=== PATIENT | male | born 1965 | race Caucasian/White ===

== ENCOUNTER 2016-09-07 13:17 | Inpatient (IN) | payer OTHER ==
[~2016-09-07] VITALS: Ht 188 cm; Wt 90.0 kg
[2016-09-07 13:47] VITALS: BP 136/94; PULSE 99; RESP 10; O2SAT 99
--- NOTE | 2016-09-07 15:10 | ED.REPORT ---
HPI-General Illness Date of Service Sep 07, 2016 ED Provider: Doc,Ed MD History of Present Illness: needs to be admitted for blood infection, dx at [facility]. was at [facility] for 3 weeks then transferred to [place]. Leonie Zhou at [facility] in [place] is primary care. Has been on antibiotics. presenting symptom was pain in neck, wrist and hip on nafcillin regime. Hx of IVDA, current use. Left [place] because no one would give him pain medications Nursing Notes Stated Complaint: BLOOD INFECTION Chief Complaint: General Complaint Nursing Notes Reviewed: Yes Allergies: Coded Allergies: oxycodone (Verified Allergy, Severe, NIGHT TERRORS, 09/07/16) General Time Seen by MD: 15:10 Chief Complaint Other ("blood infection") Hx Obtained From: Patient Sudden in Onset?: No Past Medical History Past Medical History Denies: Asthma, Diabetes mellitus Past Surgical History left arm Smoking History Current Every Day Smoker (1/2 pack a day 40 years) Social History meth and heroin IV Alcohol Use: "Social" Occupation lives with no work or school 09/07/2016 Ambulatory Status Independent Physical Exam Vital Signs Vital Signs Date Time Temp Pulse Resp B/P Pulse Ox O2 Delivery O2 Flow Rate FiO2 09/07/16 13:47 36.6 99 10 136/94 99 Room Air Initial VS: Reviewed, Vital signs normal General/Constitutional: Well-developed, Well-nourished Head / Eyes: Atraumatic, Normocephalic, PERRL ENT: Mucous membranes moist, Conjunctiva normal, No scleral icterus Neck: Supple, Non-tender, Full range of motion Respiratory: Breath sounds normal, Clear to auscultation, No respiratory distress Cardiovascular: Regular rate & rhythm, Heart sounds normal, Intact distal pulses Abdomen / GI: Soft, Non-tender, No guarding, No rebound, No distention Back: No CVA tenderness Lymphatic: No lymphadenopathy Extremities: Vascular intact, Neuro intact, No swelling, No tenderness Skin: Warm, Dry, No cyanosis Neurologic: Alert, Oriented, Nonfocal Psychiatric: Mood/affect normal, Behavior normal, Normal thought content General/Constitutional: Awake, Alert, No acute distress Respiratory / Chest: Atraumatic, Breath sounds NL, Breath sounds = bilat Cardiovascular: Heart rate NL, Regular rhythm, Heart sounds NL Interpretation & Diagnostics Lab Results Interpretation Result Diagram: 09/07/16 1645 09/07/16 1645 Test 09/07/16 16:45 White Blood Count 9.2th/mm3 (3.8-10.1) Red Blood Count 4.49mil/mm3 (4.40-5.80) Hemoglobin 13.2g/dL (13.8-17.2) Hematocrit 40.1% (41.0-50.0) Mean Corpuscular Volume 89.3fL (81-100) Mean Corpuscular Hemoglobin 29.4pg (27.0-35.0) Mean Corpuscular Hemoglobin Concent 32.9% (32.0-37.0) Red Cell Distribution Width 14.7% (12.3-15.4) Platelet Count 355bil/L (150-400) Neutrophils (%) (Auto) 56.2% (40-74) Lymphocytes (%) (Auto) 28.7% (14-46) Monocytes (%) (Auto) 10.5% (4-12) Eosinophils (%) (Auto) 4.1% (0-5) Basophils (%) (Auto) 0.2% (0-3) Sodium Level 138mEq/L (134-144) Potassium Level 4.1mEq/L (3.5-5.2) Chloride Level 103mEq/L (97-108) Carbon Dioxide Level 21mmol/L (18-29) Blood Urea Nitrogen 10mg/dL (6-24) Creatinine 0.58mg/dL (0.76-1.27) Estimat Glomerular Filtration Rate 157mL/min (>59) Glucose Level 99mg/dL (60-99) Lactic Acid Level 1.1mmol/L (0.4-2.0) Calcium Level 9.6mg/dL (8.5-10.1) Total Bilirubin 0.4mg/dL (0.0-1.2) Aspartate Amino Transf (AST/SGOT) 34U/L (0-50) Alanine Aminotransferase (ALT/SGPT) 70U/L (0-44) Alkaline Phosphatase 67U/L (25-150) Total Protein 8.1g/dL (6.4-8.4) Albumin 3.9g/dL (3.4-5.0) Re-Eval/Medical Decision Med Decision/Clinical Course 50 year old presents to the Er for evualation of a blood infection s/p using drugs. Has been seen at [facility] and did have skilled nursing placement but left because no one was giving him pain medications. consult with Dr. Sanchez. Patient is admitted. Discharge & Departure Primary Impression: Intravenous drug abuse Additional Impression: Bacteremia Disposition: ADMITTED TO HOSPITAL Referrals: NOPCP (PCP) EDSupervising Provider for APC: Maximiliano Rocha MD, Sue ARNP Sep 07, 2016 15:10
[2016-09-07] MEDS ORDERED: CeFAZolin 2 Gm/50 mL D5W Duplex Bag IV ONE (16:10)
[2016-09-07 16:54] LABS: BASOPHILS % (AUTO) 0.2 % (0-3); EOSINOPHILS % (AUTO) 4.1 % (0-5); MONOCYTES % (AUTO) 10.5 % (4-12); Mean Corpuscular Hemoglobin 29.4 pg (27.0-35.0); Mean Corpuscular Volume 89.3 fL (81-100); NEUTROPHILS % (AUTO) 56.2 % (40-74); Platelet Count 355 bil/L (150-400)
--- NOTE | 2016-09-07 18:19 | PCM.HPMED ---
Subjective Date of Service Sep 07, 2016 Primary Provider: Admitting Physician: Hannah Alvarez MD Primary Care Physician: Nopsaloni Attending Physician: Hannah Alvarez MD Chief Complaint: Neck pain and infection. History of Present Illness: This is a 50-year-old male admitted after spending 2 nights at home with a known C2/C3 facet osteomyelitis on the left side. He had been hospitalized at [facility] in [place], then left there AMA, treated with weekly Dalvabancin, but pain worsened and MRI documented worsening infection. He was then placed on nafcillin with plans for 6 weeks of antibiotics. He was then transferred to a swing bed at [facility] and spent 1 or 2 nights there before leaving AGAINST MEDICAL ADVICE, at the time leaving the impression that he was leaving because he could not receive IV Dilaudid in that setting. He was receiving very large amounts of oral Dilaudid. Please see the notes below and the reference to his IV drug use which is suspected to have recurred in the last 2 days. DOS 09/04/16 Primary Care Physician:~~JILL Lloyd Outpatient Specialists:~Dr. Christensen HPI: Hortencia Barrios~is an 50 y.o.~male~with C2-C3 Osteomyelitis presenting today for IV Nafcillin until October 16, although the patient prefers to count from the beginning of his original failed ABX course, which would put his final date of Nafcillin on October 05. ~He claims to have no ID followup appointment, but the overall plan is to continue Nafcillin until ID says to stop it. ~~His medical records from the hospital in [place] document:::: "Hortencia Barrios is a 50-year-old male who was discharged from the hospital on the of this month after a 4 day admission for MSSA septicemia secondary to IV drug use. He had a septic left C2-3 facet joint with osteomyelitis. Echo was not definitive for endocarditis. He was discharged against medical advice on once a week IV Dalbavancin. He was having worsening pain yesterday and Dr. erwin arrange for an outpatient MRI that is now positive for discitis and osteomyelitis at C2 and C3". Pt was evaluated by Dr. Dickey and Dr. Wolff of ID. It was recommended that he continued Nafcillin 2gm IV q4h for 6-8 weeks, or through October 16 which will be six weeks. Exact duration will be left to ID. Pt will get CBC and CMP bi- weekly while on antibiotic. At discharge, pt's neck pain was slowly improving. Pt was informed that the use of IV and PO pain medication will be wean off before he is [place] [facility] There were no neurologic deficits or symptoms of worsening infection. 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, Rx start 08/11/2016 08/12/2016 Priority: High Polysubstance abuse 08/12/2016 Priority: High Osteomyelitis of spine (HCC) MSSA (methicillin susceptible Staphylococcus aureus) septicemia ([facility]) Heroin use Methamphetamine use Nonrheumatic aortic valve insufficiency 08/14/2016 Opiate dependence ([facility]) 08/14/2016 Staphylococcus aureus septicemia, Rx start 08/11/2016 08/12/2016 HCV antibody positive 08/12/2016 Normocytic anemia 08/12/2016 Tobacco dependence 08/12/2016 Vertebral osteomyelitis (HCC) 08/12/2016 Past Surgical History: Procedure Laterality Date arm surgery Allergies and Medications: Inpatient Meds at the hospital PrescriptionsPriortoAdmission Prescriptions Prior to Admission Medication Sig Dispense Refill Last Dose acetaminophen (TYLENOL) 325 MG tablet Take 2 tablets (650 mg total) by mouth every 6 (six) hours as needed 30 tablet 0 09/03/2016 at 2347 ibuprofen (MOTRIN) 200 MG tablet Take 400 mg by mouth every 6 (six) hours as needed for Pain 09/04/2016 at 0935 NS 0.9 % SolP 100 mL with nafcillin 1 gram SolR 2,000 mg Inject 2,000 mg into the vein every 4 (four) hours ~for 28 days 168 Dose 0 09/04/2016 at 1200 oxyCODONE (ROXICODONE) 5 MG immediate release tablet Take 1-3 tablets (5-15 mg total) by mouth every 3 (three) hours as needed 30 tablet 0 09/02/16 at 0807 traMADol (ULTRAM) 50 mg tablet Take 1 tablet (50 mg total) by mouth every 6 (six) hours as needed 30 tablet 0 09/04/2016 at 1343 mhzspay-lqfepobcsihvj-rdaobzrh (EXCEDRIN EXTRA STRENGTH) 250-250-65 mg 250-250- 65 mg per tablet Take 1 tablet by mouth every 6 (six) hours as needed for Pain Unknown at Unknown time calcium carbonate (TUMS) 200 mg calcium (500 mg) chewable tablet Take 2 tablets (1,000 mg total) by mouth 2 (two) times daily as needed 30 tablet 0 Unknown at Unknown time diphenhydrAMINE (BENADRYL) 25 mg capsule Take 1-2 capsules (25-50 mg total) by mouth every 6 (six) hours as needed 30 capsule 0 Unknown at Unknown time methocarbamol (ROBAXIN) 500 MG tablet Take 500 mg by mouth 4 (four) times daily as needed for Muscle spasms ~Take 1 tablet every 6 hours as needed for severe neck pain ONLY. ~Do NOT take if using Heroin or other drugs. #10 dispensed on 08/09/16 Unknown at Unknown time polyethylene glycol (MIRALAX) 17 gram/dose oral powder Dissolve 1 capful (17 g) in 8 ounces of water and drink by mouth. 527 g 0 Unknown at Unknown time INPATIENT MEDICATION LIST: Scheduled Meds: nafcillin (NALLPEN) IVPB (100 mL) ~2,000 mg IV Q4H Continuous Infusions:~ PRN Meds:acetaminophen, calcium carbonate, diphenhydrAMINE, ibuprofen, methocarbamol, oxyCODONE, polyethylene glycol, traMADol~~~~~~~~~~~~~~~~~~ Allergies: Allergies Allergen Reactions Lorazepam Other (See Comments) Patient stated had "terrifying nightmares" within about an hour of receiving Ativan (po) + Compazine (iv). Prochlorperazine Other (See Comments) Pt reported "terrifying nightmares" within about an hour of receiving ativan (po ) and compazine (iv). Oxycodone: ~Causes nightmares and paranoia Social History: Social History Substance Use Topics Smoking status: Current Every Day Smoker Packs/day: 0.50 Types: Cigarettes Smokeless tobacco: None Alcohol use Yes Comment: rare Family History: History reviewed. No pertinent family history. Review of Systems: General ROS: No chest pain, SOB, Nausea, Vomiting, Bleeding, Seizures, Depression, Rash, Dysuria, Joint Pain, Coughing, Abdominal Pain, Sore Throat Physical Examination: Vitals: ~Vital signs and trends reviewed. Vitals: 09/04/16 1522 BP: 145/88 Pulse: 93 Resp: 18 Temp: 37.1 C (98.7 F) SpO2: 98% General: Not chronically ill appearing, appears stated age and cooperative HEENT: Normocephalic, without obvious abnormality, conjunctivae clear. PERRL, EOM's intact. Lips, mucosa, and tongue normal; teeth and gums normal for age, JVD 6 cm at 45 degrees, neck supple, symmetrical, trachea midline and thyroid grossly normal in appearance Respiratory: normal respiratory effort, lungs clear to ausculation on anterior/ posterior exam Cardiovascular: regular rate and rhythm, S1, S2 normal, variable 1/6 CRYSTAL, pedal pulses 2+ and symmetric, ~no edema in bilateral lower extremities Abdomen: soft, ~non-tender; bowel sounds normal; no masses or organomegaly appreciated MSK: extremities have normal bulk and tone, no cyanosis, intact ROM and 5/5 strength in all four extremities Skin: Warm and dry on palpation without significant lesions Neurologic:~Face symmetric, CN grossly intact, Normal tone and sensation to light touch in all four extremities Psych: Alert/oriented x3, normal affect and insight LINES:~PICC in the right upper arm. RECENT LAB VALUES: ~ Recent Labs ~09/03/16 ~0607 WBC ~7.1 HGB ~13.2 HCT ~40.8 PLTCT ~372 Recent Labs ~09/03/16 ~0607 NA ~139 K ~3.9 CL ~105 CO2 ~27 BUN ~13 CREAT ~0.80 CALCIUM ~8.6 ALBUMIN ~3.1* BILITOT ~0.7 ALKPHOS ~57 ALT ~66* AST ~34 : Other Imaging: Mr Cervical Spine Wo/w Contrast Result Date: 08/22/2016 MR CERVICAL SPINE WO/W CONTRAST Clinical: NECK PAIN Comparison: Comparison is made to MRI of 08/11/2016 Procedure:Standard MR imaging was performed without and with intravenous contrast. Contrast: 16 cc of ProHance was administered. Findings: Comparison is made to MRI of 08/11/2016. Again noted is a abnormal left C2-3 facet joint with abnormal bone marrow edema joint effusion and synovitis with surrounding soft tissue edema and enhancement concerning for septic joint. There is enhancement of the left C2 lamina similar to the prior study. Today's examination is abnormal enhancement of the anterior aspect of the C2 and the C3 vertebral bodies. There is new enhancement at the posterior left lateral margin of the disc seen on series 9 images 6 and 7. This is concerning for discitis and osteomyelitis. The infectious process appears to progressed since the patient's previous study. No epidural abscess is identified. There continues to be edema and enhancement in the prevertebral soft tissues, similar to the patient's prior study. 1. Prior MRI from 08/11/2016 had demonstrated a septic C2-3 facet joint. The infection appears to have progressed since that prior exam with left lateral C2- 3 discitis and osteomyelitis at C2 and C3 anteriorly. There is increasing edema and enhancement in the surrounding soft tissues. No epidural abscess identified. Abnormal edema and enhancement in the prevertebral soft tissues persists. Electronically signed by: Claudia Tejeda MD 08/22/2016 4:25 PM, [facility] [facility] Time. Mr Spine (screening) Wo/w Contrast Result Date: 08/11/2016 MR SPINE (SCREENING) WO/W CONTRAST Clinical: MSSA septicemia IVDA Neck pain Comparison: ~~~Procedure:Standard MR imaging was performed. +20 cc of ProHance were administered. Findings: Cervical spine: There is abnormal edema and enhancement in the prevertebral soft tissues. There is abnormal edema and enhancement in the posterior soft tissues of the cervical spine in the paraspinous muscles. There appears to be enhancement at the left C2-3 facet with widening of the facet, which is concerning for septic joint. Additionally there appears to be abnormal edema and enhancement at the C2 and the C3 facet concerning for osteomyelitis.. The right facet joint does not demonstrate significant enhancement or edema. There appears to be mild dural enhancement without epidural abscess. No soft tissue abscess is identified. Thoracic spine: Alignment and curvature of the thoracic spine is anatomic. Vertebral body height is normal. Intervertebral disc height is normal. No discitis identified. No septic facet joints are seen. No abnormal edema or enhancement in the paraspinous soft tissues. Lumbar spine: Alignment and curvature of the lumbar spine is anatomic. There is mild degenerative disc and endplate disease. No discoid is or osteomyelitis identified. No epidural abscess is seen. Paraspinous soft tissues do not demonstrate significant edema or enhancement. No soft tissue abscess is seen. 1. Findings concerning for septic left C2-3 facet joint with osteomyelitis. There is abnormal edema and enhancement in the prevertebral soft tissues anteriorly and in the posterior paraspinous musculature. The edema and enhancement appear to involve the neural foramen. No soft tissue abscess is seen. There is dural enhancement without focal epidural abscess. Electronically signed by: Claudia Tejeda MD 08/11/2016 4:09 PM, [facility] ? Time. X-ray Chest Pa And Lateral Result Date: 08/09/2016 XR CHEST 2V AP/PA AND LAT Clinical: JOINT PAIN, iv drug use Comparison: 2014 Findings: No pneumothorax, pleural effusion or airspace consolidation. ~ Heart size and mediastinal contours are normal. ~Lungs are well expanded. ~No acute osseous abnormality identified. ~Right nipple ring incidentally noted. 1. ~No acute radiographic abnormality of the chest. Electronically signed by: Kkio Pierre MD 08/09/2016 7:45 AM, [facility] ? Time. Xr Femur Left 2v Result Date: 08/12/2016 XR FEMUR LEFT 2V, XR PELVIS 1-2V Clinical: MSSA septicemia, IVDA Comparison: Findings: There is a 7 mm linear radiolucency in the soft tissue of the left hip, projecting just inferior to the greater trochanter, potentially a radiodense foreign body within the soft tissues. Underlying bony structures intact. ~Left femur intact. ~Alignment at the hip and knee anatomic. ~No knee effusion. Bony pelvis intact. ~SI joints and pubic symphysis intact. ~Frontal views of the hips demonstrate preserved joint spaces. Impression: 7 mm possible radiodense foreign body in the soft tissue of the left hip, just inferior to the greater trochanter. Electronically signed by: Mara Romero MD 08/12/2016 4:00 PM, [facility] ? Time. Xr Hip Right 2+v Complete Result Date: 08/11/2016 XR HIP RIGHT 2+V COMPLETE Clinical: GENERALIZED BODY ACHES FATIGUE HEADACHE RIGHT HIP TENDERNESS Comparison: ~~~Findings: No hip fracture dislocation or AVN identified. No significant hip arthritis is seen. There are small subchondral cysts at the femoral head neck junction but no osseous hypertrophy identified. No acute process seen Electronically signed by: Claudia Tejeda MD 08/11/2016 6: 16 AM, [facility] ? Time. X-ray Pelvis 1-2 Views Result Date: 08/12/2016 XR FEMUR LEFT 2V, XR PELVIS 1-2V Clinical: MSSA septicemia, IVDA Comparison: Findings: There is a 7 mm linear radiolucency in the soft tissue of the left hip, projecting just inferior to the greater trochanter, potentially a radiodense foreign body within the soft tissues. Underlying bony structures intact. ~Left femur intact. ~Alignment at the hip and knee anatomic. ~No knee effusion. Bony pelvis intact. ~SI joints and pubic symphysis intact. ~Frontal views of the hips demonstrate preserved joint spaces. Impression: 7 mm possible radiodense foreign body in the soft tissue of the left hip, just inferior to the greater trochanter. Electronically signed by: Mara Romero MD 08/12/2016 4:00 PM, [facility] ? Time. X-ray Wrist Right Complete Result Date: 08/11/2016 XR WRIST RIGHT 3V Clinical: GENERALIZED BODY ACHES FATIGUE HEADACHE Comparison: ~~~Findings: No acute fracture or dislocation identified. No radiodense foreign bodies are seen. No significant arthritis. Impression: No acute fracture seen Electronically signed by: Claudia Tejeda MD 08/11/2016 6:16 AM, [facility] ? Time. Ct Head Wo Contrast Result Date: 08/09/2016 CT HEAD WO CONTRAST Clinical: headache ~~Comparison: None Procedure:Multislice CT imaging was performed. Exam was performed within 24 hours of admission. Findings: CEREBRUM: Normal. No bleed, mass effect, or visible infarct. POSTERIOR FOSSA: Normal. VESSELS: Normal for age, with mild atherosclerotic calcification. SINUSES, MASTOIDS: Visualized portions normal. ORBITS: Normal. SKULL: Normal for age. Impression: 1. Normal head CT for age. [facility] rendered a preliminary interpretation made available by fax @ [phone] hours. 5A Electronically signed by: Shiv Pizarro MD 08/09/2016 7:56 AM, [facility] ? Time. Echo Complete Per Protocol Result Date: 08/12/2016 ~~~~~~~~~~~~~~~~~~~~~~~~~~~~~~~~~~~~~~~~~~~~~~~~~~~~~~~~~~~~~~Study ID: [id number] ~ ~~~~~~~~~~~~~~~~~~~~Adult Echocardiogram ~~~~~~~~~~~~~~~~~~~~~~~~~~~~~~~~~~~~~~~ ~~~~~~~~[id number] ~~~~~~~~~~~~~~~~~~~~~~~~~~~~~~~~~~~~~~~~~~~~~~~ [place] [id number] ~~~~~~~~~~~~~~~~~~~~~~~~~~~~~~~~~~~~~~~~~~~~~~~ Name: HORTENCIA BARRIOS RStudy Date: 08/12/2016 09:05 AM ~~~~~~~~~~~~~~BP: 110/ 72 m mHg ~~~~~Pt Location: [facility] MS^[id number] : 1965 ~ ~~Ordering MD: LORENA SEXTON ~~~~~~~~~~~~~~~Height: 74 in Age: 50 yrs ~~~~~~ ~Referring MD: LORENA SEXTON ~~~~~~~~~~~~~~Weight: 207 lb Gender: Male ~~~~~ ~Performed By: Surekha Mac RDBSA: 2.2 m2 Reason For Study: GENERALIZED BODY ACHES Conclusions Normal LV systolic function with an LVEF of 60% Dilated right ventricle with normal systolic function Minimal right atrial dilatation Mitral valve sclerosis with mild regurgitation Aortic valve sclerosis with moderate aortic valve insufficiency Moderate tricuspid regurgitation with mildly elevated pulmonary pressures and an RVSP of 36 mm mercury Cannot exclude chronic or acute pulmonary emboli here Trace pulmonic insufficiency No pericardial effusion No dramatic valvular vegetations identified here. If a higher sensitivity for the detection of valvular vegetations is desired and would be clinically helpful, could consider transesophageal echocardiography No previous echocardiogram available for comparison. Procedure 2-D transthoracic echocardiogram with color flow and Doppler. Left Ventricle Left ventricular ejection fraction is 60%. Normal left ventricular chamber size, wall thickness and systolic function. Mild (Gr. I) left ventricular diastolic relaxation abnormality is demonstrated. Right Ventricle The right ventricle is dilated. Normal right ventricular systolic function. RV Base=4.2. RV S' Rito 13 cm/sec. TAPSE distance is 24 mm. Atria The left atrium is normal in size. The right atrium is mildly dilated. The left atrial volume indexed to BSA is calculated to be 32 cc/m2. Mitral Valve Mild sclerocalcific changes of the mitral valve are present. Mild mitral regurgitation is present. Aorta / Aortic Valve Aortic leaflets are mildly sclerotic (without stenosis). Normal aortic root diameter. Moderate aortic insufficiency is demonstrated. Tricuspid Valve Normal tricuspid valve appearance. Moderate tricuspid regurgitation is present. Estimated RA pressure is 8 mmHg. Peak estimated pulmonary artery pressure is 36 mmHg. Pulmonic Valve The pulmonic valve is not adequately visualized. Trace (physiologic) pulmonic insufficiency is present. Pericardium Normal pericardium appearance without effusion. MMode/2D Measurements and Calculations IVSd: 0.72 cm ~~~~~~~~LVIDd: 5.3 cm ~~~~~~~FS: 27.9 % ~~~~~~~% IVS thick: IVSs: 1.2 cm ~~~~~~~~~LVIDs: 3.8 cm ~~~~~~~~~~~~~~~~~~~~~~~~~69.0 % ~~~~~~~~~~~~~~~~~~~~~~LVPWd: 0.85 cm ~~~~~~~~ ~~~~~~~~~~~~~~LVPWs: 1.3 cm ~~~~~~~~ Aorta annulus: 2.0 cm Ascending Aorta: ~~~~LVOT diam: 2.1 cm LAs major: 6.1 cm LA dimension: 3.1 cm ~3.4 cm ~~~~~~~~ Billy major: 5.2 cm ~~~~ESV(MOD-sp2): ~~ ~~~~~SV(MOD-sp4): ~~~~~TAPSE_phl: 2.4 cm ~~~~~~~~~~~~~~~~~~~~~~26.1 ml ~~~~~~~~~ ~~~~41.0 ml ~~~~~~~~~~~~~~~~~~~~~~ESV(sp2-el): 23.3 ml ~~~~~~~~ Ao Sinus Diam_phl: ~~~Ao STJ Diam _phl: ~~~~IVC Diam_phl: ~~~~RV Base_phl: 2.9 cm ~~~~~~~~~~~~~~~2.8 cm ~~~~~~~~~~ ~~~~2.6 cm ~~~~~~~~~~~4.2 cm ~~~~~~~~ LA vol index: 31.7 ml/m2 Doppler Measurements and Calculations MV A dur: 0.12 sec MV dec time: ~~~~~~Ao V2 max: ~~~~~~~~~AI max rito: MV E max rito: ~~~~~0.22 sec ~~~~~~~~~~153.5 cm/sec ~~~~~~~443.3 cm/sec 73.8 cm/sec ~~~~~~~~~~~~~~~~~~~~~~~~~~Ao max P.4 mmHg AI P1/2t: MV A max rito : ~~~~~~~~~~~~~~~~~~~~~~~~Ao mean P.0 tuZz980.4 msec 81.2 cm/sec MV E/A: 0.91 ~~~~~~~~~~~~~~~~~~~~~~~~~LEIF(I,D): 2.5 cm2 LV IVRT: 0.07 sec ~~~~~~~~ LV V1 max: ~~~~~~~~SV( LVOT): 81.3 ml ~PA V2 max: ~~~~~~~~~TR max rito: 113.9 cm/sec ~~~~~~~~~~~~~~~~~~~ ~~~~~~95.3 cm/sec ~~~~~~~~264.0 cm/sec ~~~~~~~~~~~~~~~~~~~~~~~~~~~~~~~~~~~~~~~~~ ~~~~~~~~~~~~~~~~~TR max PG: ~~~~~~~~~~~~~~~~~~~~~~~~~~~~~~~~~~~~~~~~~~~~~~~~~~~~ ~~~~~~27.9 mmHg ~~~~~~~~~~~~~~~~~~~~~~~~~~~~~~~~~~~~~~~~~~~~~~~~~~~~~~~~~~RVSP( TR): 35.9 mmHg ~~~~~~~~ RAP systole: ~~~~~~Pulm Sys Rito: ~~~~~Lat Peak E' Rito: ~~~Med Peak E' Rito : 8.0 mmHg ~~~~~~~~~~54.0 cm/sec ~~~~~~~12.8 cm/sec ~~~~~~~~9.7 cm/sec ~~~~~~~~~ ~~~~~~~~~~Pulm Martinez Rito: ~~~~~~~~~~~~~~~~~~~39.1 cm/sec ~~~~~~~~~~~~~~~~~~~Pulm A Revs Rito: ~~~~~~~~~~~~~~~~~~~31.3 cm/sec ~~~~~~~~~~~~~~~~~~~Pulm A Revs Dur: ~ ~~~~~~~~~~~~~~~~~~0.11 sec ~~~~~~~~~~~~~~~~~~~Pulm S/D: 1.4 ~~~~~~~~ E/E' lat: 5.8 ~~~~~E/E' med : 7.6 ~~~~~~~~ Interpreted by:Jung Jasper, MD ~on 08/12/2016 12:34 PM Assessment: 50 y.o.~male~with Osteomyelitis and possible Valvular Endocarditis presenting today for IV Nafcillin. At the ACU he is uncooperative and is demanding IV Dilaudid. He is admitted to the Swing Bed - SNF status. Plan: 1. C2/C3 Facet Osteomyelitis of MSSA Septicemia - Continue IV Nafcillin until 10/16 or other date as assigned by ID. - The patient hopes to stop IV Nafcillin on 10/05 since that is 6 weeks from his first starting date. - Will need follow up arranged with Dr. Christensen - Check CBC and BMP weekly - Will stop Oxycodone and use PO DIlaudid. - Dr. Sexton told me that he told the patient that his opiates would be stopped/ tapered down before completing the Nafcillin. ~He also declined to give him the Adderall for ADHD that the patient has recently announced he has been diagnosed with. ~ 2. IV Meth and Heroin abuse - No IV opiates - Taper off all opiates over the next 4 - 6 weeks 3. Mild Valvular heart disease - Complete 6-8 weeks of Nafcillin for MSSA Sepsis 4. Hepatitis C 5. The patient has left AMA from [facility] last month before and as soon as he arrived here indicated that he would do the same here if his demands are not met. ~He was overheard calling his family to come and get him. 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, Rx start 08/11/2016 Staphylococcus aureus septicemia, Rx start 08/11/2016 Polysubstance abuse HCV antibody positive Normocytic anemia Tobacco dependence Vertebral osteomyelitis (HCC) Nonrheumatic aortic valve insufficiency Opiate dependence (HCC) Osteomyelitis of spine (HCC) MSSA (methicillin susceptible Staphylococcus aureus) septicemia (HCC) Heroin use Methamphetamine use Emergency Contact: Extended Emergency Contact Information Primary Emergency Contact: Clarisse Mendoza ~[place] Mobile Relation: CODE STATUS: Full Electronic notification have been sent to the patient's PCP (JILL Lloyd ) GARCÍA ALVAREZ MD Accepted care at 1515. Lying in side in room, "I feel belkys shit. It feels like someone is sitting on my neck." Cooperative, flat affect. 1800: "I am going to [facility] ~straight away. This is a hardship on my family (being here)." States "does not care" what may occur if leaves AMA. Signed AMA paper work, Dr. Waters notified, currently awaiting 's arrival, PICC out. 1999: Out to nurse's station, talking on phone to , "I can see my DrEula first thing in the morning." Left ambulatory with multiple bags of belongings at 1830. Review of Systems: Positive for Neck Pain and related events. Negative for Chest Pain, Nausea, Vomiting, Abdominal Pain, Bleeding, Rash, Dysuria, Seizures, Depression, New Allergies, Hearing Loss and Weakness. 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, Rx start 08/11/2016 08/12/2016 Priority: High Polysubstance abuse 08/12/2016 Priority: High Osteomyelitis of spine (HCC) MSSA (methicillin susceptible Staphylococcus aureus) septicemia ([facility]) Heroin use Methamphetamine use Nonrheumatic aortic valve insufficiency 08/14/2016 Opiate dependence (HCC) 08/14/2016 Staphylococcus aureus septicemia, Rx start 08/11/2016 08/12/2016 HCV antibody positive 08/12/2016 Normocytic anemia 08/12/2016 Tobacco dependence 08/12/2016 Vertebral osteomyelitis (HCC) 08/12/2016 Past Surgical History: Procedure Laterality Date arm surgery Family History No family history pertinent to this admission is identified. Social History Hx Alcohol Use: Yes (couple of times per week) Hx Substance Use: Yes (Marijuana; Hx of polysubstance use) Smoking Status: Current Every Day Smoker (1/2 pack a day 40 years) Living Arrangement: with Family Exam Vital Signs Vital Sign - Last Date Time Temp Pulse Resp B/P Pulse Ox O2 Delivery O2 Flow Rate FiO2 09/07/16 13:47 36.6 99 10 136/94 99 Room Air Exam Alert and oriented 3. He appears to be in significant more distress than when I last saw him at [facility] several days ago, admitted then with onboard IV Dilaudid. He is lying on his stomach trying to get some relief from the neck pain. Pupils are equally round and reactive to light and accommodation. Extraocular muscles are intact. Sclera are pink and anicteric. Throat looks normal. No lymph nodes are felt head, neck, supraclavicular area. There is no thyromegaly No carotid bruits are heard and there is no significant JVD beyond normal. Heart is regular rate and rhythm without unusual sounds or murmurs. Lungs are clear to auscultation bilaterally Abdomen is soft, nontender, no organomegaly, bowel sounds are heard. Extremities have no ankle edema. Musculoskeletal he does not have significant tenderness as compared to the last time I examine his neck on the left side. Skin has no rash or jaundice. He does have multiple scars on his arms from skin popping. Neuro cranial nerve II through XII tested intact, motor is 5 out of 5 throughout , there is no tremor. Lab and Diagnostics Result Diagram: 09/07/16164409/07/161644 Assessment & Plan 1 - C2-C3 Left Vertebral Facet Osteomyelitis - MSSA He has been seen by Dr. Sanchez today, and placed on IV Ancef. His original antibiotic stop date was October 16. That will be adjusted as indicated. He is likely to continue to request IV opiate pain medicine which I would caution and advise against. He was consuming very large amounts of both IV and oral opiates very recently in the hospital. He is obviously quite tolerant. 2 - IV Heroin/Meth use Urine drug screen should be updated. Anticipate significant discussions on a daily basis regarding pain control with opiates. 3 - 2 Prior AMA hospital departures in this treatment sequence The patient, per his prior actions, is likely to leave AGAINST MEDICAL ADVICE at some point in this treatment sequence. It would be challenging to find an outpatient/SNF facility that would treat him given the recent history. He would certainly not be a safe/ideal home IV PICC line discharge. 4 - Mild Valvular Heart Disease Identified on recent Echo in [place] No definite Endocarditis. Pain Evaluation: Pain not Controlled Resuscitation Status: CPR: Attempt Resuscitation Hannah Alvarez MD Sep 07, 2016 18:19
[2016-09-07] MEDS ORDERED: Polyethylene Glycol (PEG) 17 Gm Powder PO PRN (18:30)
[2016-09-07] MEDS ORDERED: Ondansetron 2 mg/mL 2 mL Inj IVPUSH PRN (18:30)
[2016-09-07] MEDS ORDERED: Alum-Mag Hydrox-Simeth 30 mL Suspension PO PRN (18:30)
[2016-09-07 19:12] VITALS: BP 116/74; PULSE 95; RESP 16; O2SAT 97
--- NOTE | 2016-09-07 21:22 | NUR ---
Admit note Pt arrived to [facility] at 1845. Pt stating came to ER due to leaving [facility] a couple days ago, came in for antibiotic regimen and increased neck pain. Pt stating neck pain 10/01. Medicated pt with PO dilaudid and ibuprofen. Pt stating pain decreased to 09/01. Pt stating no meds for med rec. Allergy to oxycodone verified. IV SL. Call light within reach, frequent rounding.
[2016-09-07] MEDS ORDERED: 0.9% Sodium Chloride 250 ML ONE (23:20)
[2016-09-08] MEDS ORDERED: CeFAZolin 2 Gm/50 mL D5W Duplex Bag IV SCH (00:30)
[2016-09-08] MEDS: CeFAZolin 2 Gm/50 mL D5W IV Premix IV SCH ×3 (01:07→16:30)
--- NOTE | 2016-09-08 06:18 | NUR ---
Knee Pain Pt reporting increased knee pain /10 this shift. No swelling or redness noted. Medicating pt with PO dilaudid, tylenol, and ibuprofen for pain. Pt restless, up ambulating in halls this shift. Pt reports having history of arthritis in his knees. Call light within reach, frequent rounding.
[2016-09-08 06:28] VITALS: BP 136/87; PULSE 78; RESP 20; O2SAT 98
--- NOTE | 2016-09-08 10:46 | PCM.PNMED ---
Subjective Date of Service Sep 08, 2016 Subjective Seen today in his room to follow up the MSSA infection in the C2-C3 vertebral facet joint, with osteomyelitis. His complaint is of bilateral knee pain, symmetric, sudden onset while in bed last night and slowly easing up so far this morning. He has been on a steady diet of oral Dilaudid and Tylenol and ibuprofen. He has never had gout. He has not injured his knees that he can recall. He has a history of meniscus arthroscopic surgery in the right knee. His girlfriend is in the room, and his whole attitude is much calmer and relaxed as compared to the agitation he had when he first came to [facility] for swing bed treatment 4 or 5 days ago. He seems like a different person. I had met him there for that admission also. He specifically denies neck pain. He has not been asking for IV opiates. I would predict that he will stay here longer compared to what I predicted yesterday. He has a track record of leaving AGAINST MEDICAL ADVICE, and I suspect that he would probably trend that way if his girlfriend does not stay here with him over the coming weeks. Exam Vital Signs Vital Sign - Last Date Time Temp Pulse Resp B/P Pulse Ox O2 Delivery O2 Flow Rate FiO2 09/08/16 06:28 36.7 78 20 136/87 98 Room Air Intake and Output 09/07/16 09/07/16 09/08/16 Cumulative From/Thru 15:00 23:00 07:00 09/07/16 13:47 - 09/08/16 06:53 Intake Total 600 ml 600 ml Balance 600 ml 600 ml Intake Oral 600 ml 600 ml # Voids 3 3 Exam Heart is regular rate and rhythm no murmur Lungs are clear to auscultation bilaterally Extremities have no ankle edema The right knee appears slightly swollen, without tenderness or warmth. There is no ballotability. The left knee exam is completely normal. IVs and Medications Medications Reviewed: Medications were reviewed in detail Lab and Diagnostics Result Diagram: 09/07/16164409/07/161644 Assessment & Plan 1 - C2-C3 Left Vertebral Facet Osteomyelitis - MSSA He was seen by Dr. Sanchez yesterday, and placed on IV Ancef. His consult is pending. His original antibiotic stop date from the ID team in [place] was October 16. That will be adjusted as indicated. He is likely to continue to request IV opiate pain medicine which I would caution and advise against. He was consuming very large amounts of both IV and oral opiates very recently in the hospital. He is obviously quite tolerant. So far the neck pain has responded to the ibuprofen/oral Dilaudid. 2 - IV Heroin/Meth use Urine drug screen was not obtained yesterday. Anticipate significant discussions on a daily basis regarding pain control with opiates. 3 - 2 Prior AMA hospital departures in this treatment sequence The patient, per his prior actions, is likely to leave AGAINST MEDICAL ADVICE at some point in this treatment sequence. It would be challenging to find an outpatient/SNF facility that would treat him given the recent history. He would certainly not be a safe/ideal home IV PICC line discharge. His girlfriends presence here overnight certainly seems to be a strong influence against leaving the hospital before treatment completion. We will see if they can sustain that. 4 - Mild Valvular Heart Disease Identified on recent Echo in [place] No definite Endocarditis. 5 - hepatitis C No current treatment or symptoms. 6 - bilateral knee pain No signs of infection seeding or systemic bacteremia. Blood cultures have been negative so far. Check uric acid level. Symptoms seem to be letting up this morning. Continue routine ibuprofen as already initiated. Nik Stanley MD Pain Evaluation: Adequate Pain Control VTE Prophylaxis: Other (he is thoroughly ambulatory without any increased immobilization, despite being hospitalized.) Resuscitation Status: CPR: Attempt Resuscitation Hannah Stanley MD Sep 08, 2016 10:05
--- NOTE | 2016-09-08 12:45 | PROG NOTE ---
[address] [address] PROGRESS NOTE PATIENT: HORTENCIA DOMÍNGUEZ : 1965 MR#: [id number] ADMIT: 09/07/2016 JOB ID: [id number] DATE: 09/08/2016 INFECTIOUS DISEASE FOLLOWUP NOTE: REASON FOR FOLLOWUP: MSSA osteomyelitis of C2-C3 in an IV drug user. INTERVAL HISTORY: This is a complex patient I saw last night in the emergency department. I dictated a lengthy consult but cannot find it this morning and I have asked the document management consultant service to look for it when they returned to work on Saturday the . If it is not found, I will redictate it. Today, the patient reports he is feeling somewhat better. He has had some strange pain in his knees bilaterally, but especially on the right, for 2-3 weeks. He has no idea how or why this the pain started, but he does tell me that he has had some issues, especially with that right knee, since he was a teenager. Dr. Stanley has ordered a uric acid and some other studies to try and evaluate this chronic but recently worsened knee pain. The patient notes that his neck pain has diminished. He is having no trouble with range of motion of his neck. No fevers, no chills, no sweats, though it was a little cold in his room last night by his report. No cough, shortness of breath, or GI symptoms. PHYSICAL EXAMINATION: Reveals an afebrile gentleman, temperature 36.7, pulse 73, respiratory rate 20, blood pressure 136/87. He is saturating well on room air and in no acute distress. Eyes without conjunctival hemorrhage. Mental status is normal. Neck with some minimal tenderness around C2. Lungs are clear. Cardiac tones without murmur. Regular rate and rhythm are noted. Abdomen soft and nontender. His knees are neither swollen nor warm to my exam. LABORATORIES: Include white count 9200. Creatinine 0.58. ALT 70. Micro includes blood cultures that are pending. A MRSA screen is negative. IMPRESSION: This is a complex gentleman who was at [facility] in [place] and then was transferred to [facility] and signed out AMA. He has a complex treatment history which I reviewed in the consult last night but basically has received a variety of intravenous antibiotics through his somewhat convoluted course over the past few weeks. His final antibiotic at [facility] was apparently nafcillin that he was supposed to continue to receive either through October 05 or , and there is some ambiguity about how one counts the dates, dependent on when he started or stopped therapy. RECOMMENDATIONS: 1. At this point, I think we would continue with the cefazolin as our sole antibiotic 2 g IV q.8 h. with the intention of going until mid to late September. A tentative stop date might be October 05 with 2 doses of dalbavancin as an outpatient to follow, and I think this would give a reasonable coverage for his osteo and still get him out of the hospital in mid September. 2. We can place a PICC line but I would prefer to wait for a couple of days to make sure the blood cultures done last night in the emergency department remain absolutely negative as it is probable that the patient did use some additional drugs during his time on the outside. 3. If the patient should consist on leaving [place] our plan would be to give 1.5 g of dalbavancin and then repeat that dose in one week in hopes of curing his osteomyelitis without a prolonged course of IV antibiotics; but, in view of the fact he already received a couple of doses of dalbavancin and the [facility] doctors thought it was not successful, I am not totally sanguine about this plan. 4. Note that the worsening seen on the two MRI scans that were done in the [facility] system is not at all surprising. Most authorities recommend against serial imaging of vertebral osteodiscitis processes unless the patient is clinically deteriorating as the pictures almost always look worse which leads to great concern on the part of Radiology. Overall, the patient tells me his trajectory is one of improvement with respect to his neck pain and I would be inclined to simply treat through mid September with IV cefazolin and then give a couple of doses of dalbavancin and call that good and then see how he does clinically. Thank you very much.
[2016-09-08 13:07] VITALS: BP 119/75; PULSE 80; RESP 18; O2SAT 98
--- NOTE | 2016-09-08 14:28 | NUR ---
Social Work-screening: data:EMR Reviewed. Pt is a 50 y/o male who was admitted on 09/07/16 for bacterimia per H&P. Pt's insurance is [employer] and PCP is not listed. Pt resides at home where he remains independent with ADLs. Per MD, pt will likely be remain in Hospital for a long course of IV abx. Pt has a recent history of drug use, SW to await MD orders for CD assessment. SW will continue to follow. Assessment:Pt who is independent at baseline. Plan:Anticipate pt to remain in the hospital for extended course of IV abx. Pt has a recent history of drug use, SW to await MD orders for CD assessment. SW will continue to follow. LARA Osei
--- NOTE | 2016-09-08 15:03 | DRSVH ---
PROCEDURE: X-RAY LEFT KNEE, THREE VIEWS ([id number]) INDICATIONS: bilateral knee pain TECHNIQUE: 3 views of the knee were acquired. COMPARISON: None. FINDINGS: Bones: No fractures or dislocations. No suspicious bony lesions. Soft tissues: No joint effusion. No suspicious soft tissue calcifications. IMPRESSION: No abnormality is seen in the left knee. Dictated by: Mika Marroquin M.D. on 09/08/2016 at 15:01 Approved by: Mika Marroquin M.D. on 09/08/2016 at 15:02
--- NOTE | 2016-09-08 15:03 | DRSVH ---
PROCEDURE: X-RAY RIGHT KNEE, THREE VIEWS ([id number]) INDICATIONS: bilateral knee pain TECHNIQUE: 3 views of the knee were acquired. COMPARISON: None. FINDINGS: Bones: No fractures or dislocations. No suspicious bony lesions. Soft tissues: No joint effusion. No suspicious soft tissue calcifications. IMPRESSION: No abnormality is seen in the right knee. Dictated by: Mika Marroquin M.D. on 09/08/2016 at 15:01 Approved by: Mika Marroquin M.D. on 09/08/2016 at 15:01
--- NOTE | 2016-09-08 17:44 | NUR ---
Pain Pt c/o of pain in both knees 10/01 pain, given PRN Ibuprofen, Tylenol, and Dilaudid with little relief. Pt later broke down crying of pain and discomfort stating, "I can't take it anymore." Notified MD of uncontrolled pain and discomfort, ordered bilateral knee xray and orthopedic consult.
--- NOTE | 2016-09-08 18:39 | CONS ---
[address] [address] CONSULTATION REPORT PATIENT: HORTENCIA DOMÍNGUEZ : 1965 MR#: [id number] ADMIT: 09/07/2016 JOB ID: [id number] DATE OF SERVICE: 09/08/2016 CHIEF COMPLAINT: Bilateral knee pain. HISTORY OF PRESENT ILLNESS: The patient is a 50-year-old male who is being treated for osteomyelitis/ diskitis of the cervical spine with a history of IV drug abuse, who complains of bilateral anterior knee pain for 2-3 days' duration. He states that he was doing a bit more standing and working than usual, and had begun having pain in his bilateral knees and is requesting narcotic pain medication for this. He denies any instability or specific injury to the knees. PAST MEDICAL HISTORY: Significant for substance abuse, osteomyelitis, bacteremia. PHYSICAL EXAMINATION: Vital signs: Blood pressure 119/75, pulse rate 80, respirations 18, temperature 37.1. He is alert and cooperative, in no acute distress. Resting in bed. His bilateral knees have no effusion present. He has full range of motion, 0-135 degrees bilaterally. His extensor mechanisms are both intact. Both knees are stable to varus and valgus stress test. Both knees have no laxity with Rosa or anterior drawer. His skin is intact overlying the knee. There is no redness or erythema. No effusion present. His feet are both warm, pink, and well perfused. He has some tenderness under the medial facets of bilateral patellae. X-rays demonstrate no evidence of degenerative changes or any other acute processes. ASSESSMENT: Bilateral knee patellofemoral chondromalacia. PLAN: I discussed with the patient that I recommended VMO strengthening exercises for his knees and helped him to do this in bed using a pillow. Anticipate that this should resolve with home exercise program. If not, would recommend physical therapy. I do not recommend narcotic pain medication for this condition. CHIKA
[2016-09-08 21:17] VITALS: BP 138/90; PULSE 80; RESP 18; O2SAT 98
[2016-09-09] MEDS: CeFAZolin 2 Gm/50 mL D5W IV Premix IV SCH ×4 (00:10→19:05)
--- NOTE | 2016-09-09 05:01 | NUR ---
Pain Pt reporting knee pain /10 this shift. Medicating pt with PO dilaudid, tylenol and ibuprofen with little relief. Trazodone given at HS. Pt awake for most of shift, currently resting in bed with eyes closed. Call light within reach, frequent rounding.
--- NOTE | 2016-09-09 08:05 | PCM.PNMED ---
Subjective Date of Service Sep 09, 2016 Subjective Pt. doing well this morning. Pain in his knees which was causing significant discomfort yesterday has resolved. He denies fevers, chills, sweats. NO other acute complaints at this time. Exam Vital Signs Vital Sign - Last Date Time Temp Pulse Resp B/P Pulse Ox O2 Delivery O2 Flow Rate FiO2 09/08/16 21:17 36.8 80 18 138/90 98 Room Air Intake and Output 09/08/16 09/08/16 09/09/16 Cumulative From/Thru 15:00 23:00 07:00 09/07/16 13:47 - 09/09/16 06:11 Intake Total 945 ml 400 ml 1945 ml Balance 945 ml 400 ml 1945 ml Intake Oral 945 ml 400 ml 1945 ml # Voids 3 3 9 # Bowel Movements 2 2 General: Alert, Oriented X3, Cooperative, No Acute Distress Mouth: Mouth Normal Chest & Lungs: Clear to auscultation & percussion Cardiovascular: Regular Rate/Rhythm, Other (trace click with S1 sound but no appreciatable murmur. ) Extremities: No cyanosis/clubbing/edma bilat Neurological: Grossly Neurologically Intact IVs and Medications Medications Reviewed: Medications were reviewed in detail Lab and Diagnostics Result Diagram: 09/07/16164409/07/161644 Assessment & Plan # - C2-C3 Left Vertebral Facet Osteomyelitis - MSSA - Pt continued on Ancef IV, ID consulted will continue to follow. His original antibiotic stop date from the ID team in [place] was October 16. That will be adjusted as indicated. He is likely to continue to request IV opiate pain medicine which I would caution and advise against. He was consuming very large amounts of both IV and oral opiates very recently in the hospital. He is obviously quite tolerant. So far the neck pain has responded to the ibuprofen/oral Dilaudid. # - IV Heroin/Meth use Urine drug screen was not obtained yesterday. Anticipate significant discussions on a daily basis regarding pain control with opiates. This complicates out patient IV therapy. 3 - 2 Prior AMA hospital departures in this treatment sequence The patient, per his prior actions, is likely to leave AGAINST MEDICAL ADVICE at some point in this treatment sequence. It would be challenging to find an outpatient/SNF facility that would treat him given the recent history. He would certainly not be a safe/ideal home IV PICC line discharge. His girlfriends presence here overnight certainly seems to be a strong influence against leaving the hospital before treatment completion. We will see if they can sustain that. 4 - Mild Valvular Heart Disease - Identified on recent Echo in [place] = No definite Endocarditis, PE unremarkable. . 5 - hepatitis C No current treatment or symptoms. 6 - bilateral knee pain No signs of infection seeding or systemic bacteremia. Continues to be improving overnight Blood cultures have been negative so far. Uric acid level not supportive of gout. Symptoms seem to be letting up this morning, essentially resolved. Continue routine ibuprofen as already initiated. Pain Evaluation: Adequate Pain Control VTE Prophylaxis: Other (he is thoroughly ambulatory without any increased immobilization, despite being hospitalized.) Resuscitation Status: CPR: Attempt Resuscitation Time spent 25 minutes Pito Linares DO Sep 09, 2016 08:04
[2016-09-09 11:19] VITALS: BP 116/79; PULSE 82; RESP 18; O2SAT 96
--- NOTE | 2016-09-09 11:32 | DRSVH ---
PROCEDURE: X-RAY PICC LINE PLACEMENT BY NURSE ([id number]) INDICATIONS: iv antibiotics COMPARISON: None. FINDINGS: PICC was placed by the intravenous therapy team from the right side. Fluoroscopic spot fi lm demonstrates tip of PICC in the cavoatrial junction. IMPRESSION: Tip of PICC lies within at the cavoatrial junction. Dictated by: Sridhar Grajeda M.D. on 09/09/2016 at 11:30 Approved by: Sridhar Grajeda M.D. on 09/09/2016 at 11:30
--- NOTE | 2016-09-09 18:33 | NUR ---
Pain Pt c/o of pain in neck 10/01 pain x 2, gave PRN Dilaudid and Ibuprofen with good relief. Pt had PICC line placed with no c/o of pain or discomfort. Pt currently resting comfortably in bed with call light within reach, bed low and locked. Pt ambulated hallway x 2. Intentional rounding.
[2016-09-09 21:48] VITALS: BP 113/78; PULSE 78; RESP 18; O2SAT 95
[2016-09-10] MEDS: CeFAZolin 2 Gm/50 mL D5W IV Premix IV SCH ×3 (03:01→19:11)
[2016-09-10 04:23] VITALS: BP 124/78; PULSE 81; RESP 18; O2SAT 97
[2016-09-10 04:26] LABS: BASOPHILS % (AUTO) 0.4 % (0-3); EOSINOPHILS % (AUTO) 7.3 % (0-5); MONOCYTES % (AUTO) 13.1 % (4-12); Mean Corpuscular Hemoglobin 29.6 pg (27.0-35.0); Mean Corpuscular Volume 89.1 fL (81-100); NEUTROPHILS % (AUTO) 46.9 % (40-74); Platelet Count 341 bil/L (150-400)
--- NOTE | 2016-09-10 05:17 | NUR ---
PICC at HS pt reports feeling like the PICC tip is "touching my heart". RN called IV Therapy, they verbalized that placement was correct per post-insertion xray, they stated the MD can be notified to repeat xray to verify placement. This RN let the pt know the earlier xray showed correct placement and that the MD may be notified to get another xray, pt stated "maybe tomorrow". Both lumens are patent at this time, flushed with NS, able to complete AM blood draw, pt received ordered ABX without any issues during the night.
[2016-09-10 12:52] VITALS: BP 141/91; PULSE 90; RESP 16; O2SAT 98
--- NOTE | 2016-09-10 12:53 | NUR ---
pain medications pt states that he is going to try to avoid taking Dilaudid today. States that he is in pain but only wants IBU
--- NOTE | 2016-09-10 13:35 | NUR ---
ambulating pt up and ambulating the hallway, "I need to do some laps". steady on feet tolerating walk well
--- NOTE | 2016-09-10 16:11 | PCM.PNMED ---
Subjective Date of Service Sep 10, 2016 Subjective NO acute complaints. knee pain comes and goes, neck pain as well present but not severe. Denies fever/chills over night. Appetite is good. Exam Vital Signs Vital Sign - Last Date Time Temp Pulse Resp B/P Pulse Ox O2 Delivery O2 Flow Rate FiO2 09/10/16 12:52 36.8 90 16 141/91 98 Room Air Intake and Output 09/09/16 09/09/16 09/10/16 Cumulative From/Thru 15:00 23:00 07:00 09/07/16 13:47 - 09/10/16 06:09 Intake Total 64 ml 1432 ml 1076 ml 4517 ml Balance 64 ml 1432 ml 1076 ml 4517 ml Intake Oral 1352 ml 1076 ml 4373 ml IV Total 54 ml 80 ml 134 ml Tube Irrigant 10 ml 10 ml # Voids 4 2 15 # Bowel Movements 0 1 3 Exam General: Alert, Oriented X3, Cooperative, No Acute Distress Mouth: Mouth Normal Chest & Lungs: Clear to auscultation & percussion Cardiovascular: Regular Rate/Rhythm,trace click with S1 sound but no appreciable murmur. ) Extremities: No cyanosis/clubbing/edema bilat Neurological: Grossly Neurologically Intact IVs and Medications Medications Reviewed: Medications were reviewed in detail Lab and Diagnostics Result Diagram: 09/10/16 0415 09/10/16 0415 Assessment & Plan # - C2-C3 Left Vertebral Facet Osteomyelitis - MSSA - Pt continued on Ancef IV, ID consulted will continue to follow. His original antibiotic stop date from the ID team in [place] was October 16. That will be adjusted as indicated. Pain reasonable controlled with current regime. He was consuming very large amounts of both IV and oral opiates very recently in the hospital. He is obviously quite tolerant. So far the neck pain has responded to the ibuprofen/oral Dilaudid. # - IV Heroin/Meth use Urine drug screen was not obtained on admission Anticipate significant discussions on a daily basis regarding pain control with opiates. This complicates out patient IV therapy. - Chemical dependence consult requested. 3 - 2 Prior AMA hospital departures in this treatment sequence The patient, per his prior actions, is likely to leave AGAINST MEDICAL ADVICE at some point in this treatment sequence. It would be challenging to find an outpatient/SNF facility that would treat him given the recent history. He would certainly not be a safe/ideal home IV PICC line discharge. His girlfriends presence here overnight certainly seems to be a strong influence against leaving the hospital before treatment completion. We will see if they can sustain that. 4 - Mild Valvular Heart Disease - Identified on recent Echo in [place] = No definite Endocarditis, PE unremarkable. . 5 - hepatitis C No current treatment or symptoms. 6 - bilateral knee pain No signs of infection seeding or systemic bacteremia. Continues to be stable, not severe Blood cultures have been negative so far. Uric acid level not supportive of gout. Symptoms seem to be letting up this morning, essentially resolved. Continue routine ibuprofen as already initiated. Pain Evaluation: Adequate Pain Control VTE Prophylaxis: Other (he is thoroughly ambulatory without any increased immobilization, despite being hospitalized.) VTE Mechanical Devices: Venous Foot Pump Resuscitation Status: CPR: Attempt Resuscitation Time spent 25 minutes Pito Linares DO Sep 10, 2016 16:11
--- NOTE | 2016-09-10 18:39 | NUR ---
resources at discharge pt is very upset about not having the appropriate resources to "survive" when he discharges. pt would like to have social work help him get disability when he discharges from the hospital.
[2016-09-10 20:57] VITALS: BP 119/78; PULSE 92; RESP 16; O2SAT 95
--- NOTE | 2016-09-10 22:26 | PROG NOTE ---
[address] [address] PROGRESS NOTE PATIENT: HORTENCIA DOMÍNGUEZ : 1965 MR#: [id number] ADMIT: 09/07/2016 JOB ID: [id number] DATE: 09/10/2016 REASON FOR FOLLOWUP: C2-C3 osteomyelitis secondary to MSSA infection. INTERVAL HISTORY: Over the weekend, the patient reports he has been quite stable. He denies any fevers, chills, or sweats. He still has some neck pain at the base of the skull posteriorly, but it is if anything a bit better. No new pulmonary or GI symptoms. No new neurologic symptoms. PHYSICAL EXAMINATION: Reveals an afebrile gentleman, temp 36.8, pulse 90, respiratory rate 16, blood pressure 141/91. He is in no acute distress. Examination of the head: No trauma. Eyes without conjunctival abnormalities. Mental status is clear. Lungs: Clear. Cardiac tones without murmur. The abdomen is benign. His neck is minimally tender at the C2-C3 level. LABORATORIES: Include a white count of 9400. Creatinine 0.67. LFTs are normal. Micro studies include negative blood cultures from September 07 and a negative PCR study of the nares for MRSA. IMPRESSION: This patient is a complex patient with a history of substance abuse who has had a multi-hospital course for this infection. Our current plan is to continue with Ancef and closely observe the patient here in the hospital until conclusion of antibiotic therapy. RECOMMENDATIONS: 1. Cefazolin 2 g IV q.8 h. through October 05, with a plan to give one or two doses of dalbavancin at the end of therapy. 2. Peripherally inserted central catheter line has been placed. 3. If the patient tries to leave against medical advice in the next few days I would give him dalbavancin 1.5 g x1 and then try and repeat that in a week, but hopefully this will not eventuate and will be able to treat him all the way through October 05. Will continue to follow closely with you.
--- NOTE | 2016-09-10 23:35 | CONS ---
[address] [address] CONSULTATION REPORT PATIENT: HORTENCIA DOMÍNGUEZ : 1965 MR#: [id number] ADMIT: 09/07/2016 JOB ID: [id number] DATE OF SERVICE: 09/10/[address] Chris Stanley for this consult. REASON FOR CONSULTATION: C2-C3 facet osteomyelitis secondary to MSSA. HISTORY OF THE PRESENT ILLNESS: The patient is a complex, 50-year-old gentleman, who was originally admitted to [facility] in [place] with neck pain and was found to have bacteremic C2-C3 facet osteomyelitis. While he was hospitalized at [facility], he underwent echocardiography which apparently did not show evidence of endocarditis. The patient was initially hospitalized and left [facility]. He was then treated with two weekly doses of dalbavancin, though it sounds as if the doses were less than that described in the article by [place] recently. In any event, his pain worsened and a followup MRI scan done at the end of July showed that it appeared that the bony infection appeared to have worsened since the films that were done originally at [facility] in mid July. Because of that, the plan was to re-admit him and eventually send him to [facility] to be kept in a so called swing bed until mid September to receive IV nafcillin as definitive treatment for this bacteremic MSSA osteomyelitis without evidence of endocarditis. While he was at [facility] following his transfer there after his readmission to [facility] in [place], the patient had a variety of issues and decided to once again leave [facility]. He then presented back to our emergency department on September 07 and was subsequently readmitted. I saw this patient, as mentioned, on September 07, and this is a repeat consultation. The plan was to treat the patient with IV cefazolin and get some blood cultures and then make sure they are negative before reinserting a PICC line. At this time on the , the patient reports continued neck pain which he believes has perhaps gotten a bit worse during the few days since he left [facility] without antibiotics. He denied, however, having significant fevers, chills, sweats, neurologic symptoms or prior problems with the antibiotics. PAST MEDICAL HISTORY: 1. Polysubstance abuse. 2. Osteomyelitis of the spine at the C2-C3 level diagnosed in mid July 2016, due to MSSA. 3. History of aortic valve insufficiency. 4. MSSA bacteremia mid July 2016. 5. Hepatitis C. SOCIAL HISTORY: The patient is a cigarette smoker and intravenous substance user. FAMILY HISTORY: Was reviewed and was negative for tuberculosis in first or second-degree relatives. REVIEW OF SYSTEMS: Was done. The patient has no significant headache, though he did have neck pain. No visual change. No sores in the mouth or sore throat. No cough, shortness of breath or chest pain. No nausea, vomiting, or diarrhea. No dysuria. Specifically, no bowel or bladder problems. No weakness in the legs. No edema. Remainder of the review of systems was negative. PHYSICAL EXAMINATION: Reveals temperature 36.6, pulse 99, blood pressure 116/74, O2 sat 99%. The patient's mental status is normal. His head without evidence of trauma. He has mild to moderate tenderness over C2-C3. His eyes without conjunctivitis or scleral icterus. Oral cavity without thrush or hairy leukoplakia. Despite his neck tenderness, his neck is actually quite supple. Lungs clear to auscultation. Cardiac exam without significant murmur, rub or gallop. Abdomen soft and nontender without organomegaly. He does not have a Olson catheter nor does he have suprapubic fullness. No cervical, inguinal or supraclavicular adenopathy. No notable skin rash and specifically no peripheral stigmata of endocarditis on the hands. Lower extremity strength is excellent. No significant edema. No synovitis. No skin breakdown. Neurologically, the patient is intact. LABORATORIES: Include white blood count 9200, hematocrit 40. Sed rate 20. Creatinine 0.58. ALT 70, AST 34. Review of the cultures from the outside facility show this was an MSSA bacteria susceptible to cefazolin as well as a course of nafcillin. Followup blood cultures were negative at outside facilities and will be ordered here. IMAGING: Includes an x-ray of the knee as the patient had complained of some pain in his bilateral knees. X-rays of the knees were negative. IMPRESSION: C2-C3 vertebral facet osteomyelitis due to methicillin-sensitive Staphylococcus aureus (MSSA) in a patient with underlying intravenous drug use. RECOMMENDATIONS: 1. Will start the patient on cefazolin 2 g IV q.8 h. to be continued through October 05. 2. At the conclusion of that on October 05, we will give at least one dose of IV dalbavancin and perhaps two doses by a week to make certain that he has completed an adequate course of therapy. We may also add in some oral antibiotic follow up. 3. We should check labs at least two or three times a week including CBC, CMP, and CRP. 4. Serial imaging of the neck will likely not be necessary if the patient has a benign clinical course. These radiographs often tend to show what appears to be worsening even though the patient may be improving clinically. 5. Will continue to follow this complex patient with you through what hopefully will be a long hospitalization ending on October 05.
[2016-09-11] MEDS: CeFAZolin 2 Gm/50 mL D5W IV Premix IV SCH ×3 (03:10→19:02)
[2016-09-11 04:22] VITALS: BP 125/78; PULSE 85; RESP 16; O2SAT 96
--- NOTE | 2016-09-11 04:41 | NUR ---
Pain: Pt c/o general neck and knee pain, medication administered; effective. Pt denied chest pain and SOB, walking in hallways prior to HS. Family at bedside, pt pleasant and cooperative with care. Pt slept off/on throughout the night.
--- NOTE | 2016-09-11 09:02 | PCM.PNMED ---
Subjective Date of Service Sep 11, 2016 Subjective Patient notes feeling overall well. Still having some chronic pains, though the knee pain is significantly improved his neck pain is now more exacerbated. He notes it is particularly severe in the evenings and night times which has prevented him from sleeping soundly. No other acute complaints at this time. Has any recurrence of fever or chills. He has a good appetite. Exam Vital Signs Vital Sign - Last Date Time Temp Pulse Resp B/P Pulse Ox O2 Delivery O2 Flow Rate FiO2 09/11/16 04:22 36.4 85 16 125/78 96 Room Air Intake and Output 09/10/16 09/10/16 09/11/16 Cumulative From/Thru 15:00 23:00 07:00 09/07/16 13:47 - 09/11/16 05:38 Intake Total 73 ml 1212 ml 634 ml 6436 ml Balance 73 ml 1212 ml 634 ml 6436 ml Intake Oral 1212 ml 550 ml 6135 ml IV Total 73 ml 84 ml 291 ml Tube Irrigant 10 ml # Voids 3 3 21 # Bowel Movements 0 3 Exam General: Alert, Oriented X3, Cooperative, No Acute Distress Mouth: Mouth Normal Extremities: No cyanosis/clubbing/edema bilat Neurological: Grossly Neurologically Intact IVs and Medications Medications Reviewed: Medications were reviewed in detail Lab and Diagnostics Result Diagram: 09/10/16 0415 09/10/16 0415 Assessment & Plan # - C2-C3 Left Vertebral Facet Osteomyelitis - MSSA - Pt continued on Ancef IV, ID consulted will continue to follow. His original antibiotic stop date from the ID team in [place] was October 16. That will be adjusted as indicated. Pain reasonable controlled with current regime. He was consuming very large amounts of both IV and oral opiates very recently in the hospital, now transitioned to oral therapy only, progress trace of nonsteroidal anti-inflammatory medications. So far the neck pain has responded to the ibuprofen/oral Dilaudid, we will continue with the alteration of a lower ibuprofen dose to accommodate evening dosage of Toradol. # - IV Heroin/Meth use Urine drug screen was not obtained on admission Anticipate significant discussions on a daily basis regarding pain control with opiates. This complicates out patient IV therapy. - Chemical dependence consult requested and pending 3 - 2 Prior AMA hospital departures in this treatment sequence The patient, per his prior actions, is likely to leave AGAINST MEDICAL ADVICE at some point in this treatment sequence. It would be challenging to find an outpatient/SNF facility that would treat him given the recent history. He would certainly not be a safe/ideal home IV PICC line discharge. Dr. Sanchez of infectious disease has made recommendations for antibiotic therapy should patient leave AMA which would be likely less effective may nonetheless her some benefit in treatment of his infection. His girlfriend's presence here overnight certainly seems to be a strong influence against leaving the hospital before treatment completion. 4 - Mild Valvular Heart Disease - Identified on recent Echo in [place] = No definite Endocarditis, PE unremarkable. . 5 - hepatitis C No current treatment or symptoms. 6 - bilateral knee pain No signs of infection seeding or systemic bacteremia. Continues to be stable, not severe Blood cultures have been negative so far. Uric acid level not supportive of gout. Symptoms seem to be letting up this morning, essentially resolved. Continue when necessary pain medications as noted above Pain Evaluation: Adequate Pain Control VTE Prophylaxis: Other (he is thoroughly ambulatory without any increased immobilization, despite being hospitalized.) VTE Mechanical Devices: Venous Foot Pump Resuscitation Status: CPR: Attempt Resuscitation Time spent 25 minutes Pito Linares DO Sep 11, 2016 09:02
[2016-09-11 09:03] VITALS: BP 118/83; PULSE 74; RESP 18; O2SAT 95
[2016-09-11 13:25] VITALS: BP 122/72; PULSE 81; RESP 17; O2SAT 97
--- NOTE | 2016-09-11 14:14 | NUR ---
Social Work-attempted CD assessment: Data:EMR reviewed. Pt is on day 4 of hospitalization for Bacterimia per H&P. Pt is not medically stable. Pt has been seen by HUGO ABBASI and will remain at [facility] until 10/05 for IV abx, pt does have PICC Line. SW attempted to see pt today to complete CD assessment, but RN in room. MD order has been received. SW to follow up with pt again tomorrow. SW will continue to follow. Assessment:Pt who is independent at baseline. Plan:Pt to remain at [facility] until 10/05 for IV abx. SW to follow up again tomorrow regarding CD assessment. SW will continue to follow. LARA Osei
--- NOTE | 2016-09-11 16:29 | NUR ---
pain Patient c/o neck pain which was relieved by 4mg PO dilaudid. Pt stated that it seemed worse at night. Pt ambulated hallways X2 and had at bedside during shift.
[2016-09-11 21:23] VITALS: BP 115/79; PULSE 100; RESP 16; O2SAT 98
[2016-09-12] MEDS ORDERED: 0.9% Sodium Chloride 250 ML ONE (01:01)
[2016-09-12] MEDS: CeFAZolin 2 Gm/50 mL D5W IV Premix IV SCH ×3 (03:43→22:00)
--- NOTE | 2016-09-12 05:12 | NUR ---
NOC shift note Uneventful night. Patient received PRN Trazodone and Tramadol at HS, but still had trouble sleeping. Replaced air mattress with foam bed for increased comfort. Antibiotics given as ordered. Patient's in the room most of the night. Calm and cooperative with care.
[2016-09-12 05:37] VITALS: BP 114/68; PULSE 76; RESP 17; O2SAT 98
--- NOTE | 2016-09-12 11:24 | PCM.PNMED ---
Subjective Date of Service Sep 12, 2016 Subjective Pt notes he felt more sedate last night, certainly tired, but also restless and unable to sleep. Feel pain, especially in neck was better controlled with transition to evening dosage of Tordol, but an odd restlessness/agitation kept him up. He feels the trazadon may be the cause. Does not want to take this again. Otherwise well. Tired this morning, but denies fever./chills/sweats or chest pains/palpitations. He is having knee pain more prominently this morning, but neck /upper back pain improved. Exam Vital Signs Vital Sign - Last Date Time Temp Pulse Resp B/P Pulse Ox O2 Delivery O2 Flow Rate FiO2 09/12/16 05:37 36.5 76 17 114/68 98 Room Air Intake and Output 09/11/16 09/11/16 09/12/16 Cumulative From/Thru 15:00 23:00 07:00 09/07/16 13:47 - 09/12/16 05:37 Intake Total 1181 ml 1050 ml 8667 ml Balance 1181 ml 1050 ml 8667 ml Intake Oral 1181 ml 920 ml 8236 ml IV Total 130 ml 421 ml Tube Irrigant 10 ml # Voids 5 2 28 # Bowel Movements 1 4 Exam General: Alert, Oriented X3, Cooperative, No Acute Distress Mouth: Mouth Normal Extremities: No cyanosis/clubbing/edema bilat Neurological: Grossly Neurologically Intact IVs and Medications Medications Reviewed: Medications were reviewed in detail Lab and Diagnostics Result Diagram: 09/10/16 0415 09/10/16 0415 Assessment & Plan # - C2-C3 Left Vertebral Facet Osteomyelitis - MSSA - Pt continued on Ancef IV, ID consulted will continue to follow. His original antibiotic stop date from the ID team in [place] was October 16. That will be adjusted as indicated. Pain reasonable controlled with current regime. He was consuming very large amounts of both IV and oral opiates very recently in the hospital, now transitioned to oral therapy only, progress trace of nonsteroidal anti-inflammatory medications. Continue daytime ibuprofen/oral Dilaudid, with the alteration of a lower ibuprofen dose to accommodate evening dosage of Toradol. # - IV Heroin/Meth use Urine drug screen was not obtained on admission Anticipate significant discussions on a daily basis regarding pain control with opiates. This complicates out patient IV therapy. - Chemical dependence consult requested and pending 3 - 2 Prior AMA hospital departures in this treatment sequence The patient, per his prior actions, is likely to leave AGAINST MEDICAL ADVICE at some point in this treatment sequence. It would be challenging to find an outpatient/SNF facility that would treat him given the recent history. He would certainly not be a safe/ideal home IV PICC line discharge. Dr. Sanchez of infectious disease has made recommendations for antibiotic therapy should patient leave AMA which would be likely less effective may nonetheless her some benefit in treatment of his infection. His girlfriend's presence here overnight certainly seems to be a strong influence against leaving the hospital before treatment completion. 4 - Mild Valvular Heart Disease - Identified on recent Echo in [place] = No definite Endocarditis, PE unremarkable. . 5 - hepatitis C No current treatment or symptoms. 6 - bilateral knee pain No signs of infection seeding or systemic bacteremia. Continues to be stable, not severe Blood cultures have been negative so far. Uric acid level not supportive of gout. Symptoms seem to be letting up this morning, essentially resolved. Continue when necessary pain medications as noted above 7. Insomnia: - Trazadone ineffective, notes side effects of agitation - Tranistion to Temazepam, ordered and pending PRN for this evening. Pain Evaluation: Adequate Pain Control VTE Prophylaxis: Other (he is thoroughly ambulatory without any increased immobilization, despite being hospitalized.) VTE Mechanical Devices: Venous Foot Pump Resuscitation Status: CPR: Attempt Resuscitation Time spent 25 minutes Pito Linares DO Sep 12, 2016 11:24
[2016-09-12 12:19] VITALS: BP 120/77; PULSE 97; RESP 16; O2SAT 99
--- NOTE | 2016-09-12 15:02 | NUR ---
Social Work-attempted CD assessment: Data:EMR reviewed. Pt is on day 5 of hospitalization for Bacterimia per H&P. Pt is not medically stable. Pt has been seen by HUGO ABBASI and will remain at [facility] until 10/05 for IV abx, pt does have PICC Line. SW attempted to see pt today to complete CD assessment, but pt in the shower. MD order has been received. SW to follow up with pt again tomorrow. SW will continue to follow. Assessment:Pt who is independent at baseline. Plan:Pt to remain at [facility] until 10/05 for IV abx. SW to follow up again tomorrow regarding CD assessment. SW will continue to follow. LARA Osei
--- NOTE | 2016-09-12 15:43 | NUR ---
Pain Patient C/O pain in neck ranging from 4-5/10. PO Dilaudid and IBU provides relief and reduces pain to 2-3/10. Offered heat pack or cold pack which patient denied. Patient is pleasant and cooperative with care. Bed low and locked, call light in reach, care and frequent rounding ongoing.
--- NOTE | 2016-09-12 15:56 | PROG NOTE ---
[address] [address] PROGRESS NOTE PATIENT: HORTENCIA DOMÍNGUEZ : 1965 MR#: [id number] ADMIT: 09/07/2016 JOB ID: [id number] DATE: 09/12/2016 INFECTIOUS DISEASE FOLLOWUP NOTE: REASON FOR FOLLOWUP: C2-C3 osteomyelitis. INTERVAL HISTORY: The patient reports no fevers, chills, or sweats. He has minimal neck pain, which seems to be slowly improving. No neurologic complaints. He does note that both of his knees hurt, which has been a chronic problem. PHYSICAL EXAMINATION: Reveals an afebrile gentleman, temperature 36.8, he has been afebrile since admission. Pulse 97, respiratory rate 16, blood pressure 190/77. He is in no acute distress. His mental status is clear. His neck is essentially nontender. Neurologically, he is fully intact and I saw him walking around the [place] earlier with excellent speed and normal gait. LABORATORY: Labs include white count 9400, diff basically normal except 7% eos, sed rate 28. CRP not done. Creatinine 0.67. Micro studies: The blood cultures are negative here. Recall that he had MSSA elsewhere. IMPRESSION: This is a gentleman with C2-C3 vertebral facet osteomyelitis due to MSSA secondary to IV drug use. He is currently doing well. RECOMMENDATIONS: 1. Cefazolin 2 g IV q.8 through October 05. 2. On October 05 will give him dalbavancin as a single IV dose to conclude his therapy. 3. Twice a week I would check CBC, CMP, and CRP. I would prefer these be checked on Saturday and . 4. Note that I am going to start seeing the patient twice a week and I plan to see him every Saturday and Saturday. 5. No additional imaging unless he deteriorates. Thank you very much.
[2016-09-12 20:05] VITALS: BP 115/76; PULSE 98; RESP 16; O2SAT 96
--- NOTE | 2016-09-13 03:43 | NUR ---
NOC shift note Patient took Temazepam at about 2200, changed from Trazodone the night before. Patient reported around midnight that he still wasn't sleepy, then was walking laps in [place] around 0200. Patient asked if he could get a higher dose tonight- will pass on to day RN to discuss with MD. Patient reported neck pain at 6/10, pain medications mildly effective to take edge off. Patient reported that knee pain is "pretty much gone". Calm and cooperative with care, intentional rounding in place.
[2016-09-13] MEDS: CeFAZolin 2 Gm/50 mL D5W IV Premix IV SCH ×3 (06:43→21:58)
--- NOTE | 2016-09-13 10:33 | NUR ---
Behavior [facility], no trauma to PICC. Pt states going stir crazy, walked 3 laps in hallway, asked pt if I could get magazines etc, pt refused. Will continue to monitor.
--- NOTE | 2016-09-13 11:29 | NUR ---
Social Work: Attempted CD Assessment-Continued Discharge Planning D:EMR reviewed. Pt is on day 6 of hospitalization for Bacterimia per H&P. Per MD in AM multi-disciplinary rounds, pt is not medically stable and will likely remain under hospital care for multiple days or until medically stable. Pt has been seen by HUGO ABBASI and will remain at [facility] until 10/05 for IVABX, pt does have PICC Line. Pt has a hx of IVDU and MET. SW attempted to see pt today to complete CD assessment, but pt was sleeping with spouse in room. SW does not have consent from pt to discuss hx of CD in front of spouse. SW attempted to wake pt but pt was sleeping. Per RN in AM multi-disciplinary rounds, pt has been agitated and ripped out IV this morning. RN and MD advised SW to follow-up with CD assessment when pt is awake and less agitated. SW will attempt to complete CD assessment when pt is alone and awake in room. MD order has been received for CD assessment. SW to follow up with pt again tomorrow. SW will continue to follow. Assessment: Pt who is independent at baseline. Plan: Pt to remain at [facility] until 10/05 for IVABX. SW to follow up again tomorrow regarding CD assessment. SW will continue to follow. LARA Connor
[2016-09-13 12:48] VITALS: BP 117/84; PULSE 94; RESP 20; O2SAT 98
[2016-09-13] MEDS ORDERED: 0.9% Sodium Chloride 250 ML ONE (13:53)
[2016-09-13 20:04] VITALS: BP 147/99; PULSE 103; RESP 20; O2SAT 99
--- NOTE | 2016-09-14 03:38 | NUR ---
NOC shift note Patient calm and cooperative, reports that he really wants to find a way to get antibiotics without having to stay in hospital- hopes to discuss options with MD today, reports that it is causing a hardship on his marriage. Didn't walk in hallway tonight. Patient tried to fall asleep without medication, but then requested PRN Temazepam at 0230. Administered one dose of HS Toradol and then PRN Dilaudid at 0325. Vital signs stable. Intentional rounding in place.
[2016-09-14 04:15] VITALS: BP 123/89; PULSE 89; RESP 18; O2SAT 98
[2016-09-14] MEDS: CeFAZolin 2 Gm/50 mL D5W IV Premix IV SCH ×3 (06:25→21:49)
[2016-09-14 09:54] LABS: BASOPHILS % (AUTO) 0.5 % (0-3); MONOCYTES % (AUTO) 9.6 % (4-12); Mean Corpuscular Hemoglobin 29.8 pg (27.0-35.0); Mean Corpuscular Volume 90.4 fL (81-100); NEUTROPHILS % (AUTO) 50.6 % (40-74); Platelet Count 306 bil/L (150-400)
--- NOTE | 2016-09-14 10:24 | PCM.PNMED ---
Subjective Date of Service Sep 13, 2016 Subjective Pt is tearful this morning. States he is overall doing well, understands the importance of continued antibiotic therapy. His major stress is actually with his . He notes they both have serious mental illness, deal with significant anxiety issues among other things, and she is having serious difficulty staying with in the hospital. He notes them not being together is not a possibility. As a result he fears he may need to leave prior to the 3 weeks it will take to provide adequate therapy. Denies fever, chills. NO other acute complaints at this time. Exam Vital Signs Vital Sign - Last Date Time Temp Pulse Resp B/P Pulse Ox O2 Delivery O2 Flow Rate FiO2 09/14/16 04:15 36.3 89 18 123/89 98 Room Air Intake and Output 09/13/16 09/13/16 09/14/16 Cumulative From/Thru 15:00 23:00 07:00 09/07/16 13:47 - 09/14/16 05:43 Intake Total 1366 ml 875 ml 71951 ml Output Total 1 ml Balance 1366 ml 875 ml 20247 ml Intake Oral 1312 ml 800 ml 40069 ml IV Total 54 ml 75 ml 620 ml Tube Irrigant 10 ml Output Urine Total 1 ml # Voids 3 2 36 # Bowel Movements 4 Exam General: Alert, Oriented X3, Cooperative, (+) emotional Distress Mouth: Mouth Normal Extremities: No cyanosis/clubbing/edema bilaterally Neurological: Grossly Neurologically Intact IVs and Medications Medications Reviewed: Medications were reviewed in detail Lab and Diagnostics Result Diagram: 09/14/16 0947 09/10/16 0415 Assessment & Plan # - C2-C3 Left Vertebral Facet Osteomyelitis - MSSA - Pt continued on Ancef IV, ID consulted will continue to follow. His original antibiotic stop date from the ID team in [place] was October 16. That will be adjusted as indicated. Pain reasonable controlled with current regime. He was consuming very large amounts of both IV and oral opiates very recently in the hospital, now transitioned to oral therapy only, progress trace of nonsteroidal anti-inflammatory medications. Continue daytime ibuprofen/oral Dilaudid, with the alteration of a lower ibuprofen dose to accommodate evening dosage of Toradol. # - IV Heroin/Meth use Urine drug screen was not obtained on admission Anticipate significant discussions on a daily basis regarding pain control with opiates. This complicates out patient IV therapy. - Chemical dependence consult requested and pending 3 - 2 Prior AMA hospital departures in this treatment sequence The patient, per his prior actions, is likely to leave AGAINST MEDICAL ADVICE at some point in this treatment sequence. It would be challenging to find an outpatient/SNF facility that would treat him given the recent history. He would certainly not be a safe/ideal home IV PICC line discharge. Dr. Sanchez of infectious disease has made recommendations for antibiotic therapy should patient leave AMA which would be likely less effective may nonetheless her some benefit in treatment of his infection. His girlfriend's presence here overnight certainly seems to be a strong influence against leaving the hospital before treatment completion - ID will formulate a plan for above problem if needed. . 4 - Mild Valvular Heart Disease - Identified on recent Echo in [place] = No definite Endocarditis, PE unremarkable. . 5 - hepatitis C No current treatment or symptoms. 6 - bilateral knee pain No signs of infection seeding or systemic bacteremia. Continues to be stable, not severe Blood cultures have been negative so far. Uric acid level not supportive of gout. Symptoms seem to be letting up this morning, essentially resolved. Continue when necessary pain medications as noted above 7. Insomnia: - Trazadone ineffective, notes side effects of agitation - Tranistion to Temazepam, with increased dosage this evening, 15mg not effective. Pain Evaluation: Adequate Pain Control VTE Prophylaxis: Other (he is thoroughly ambulatory without any increased immobilization, despite being hospitalized.) VTE Mechanical Devices: Venous Foot Pump Resuscitation Status: CPR: Attempt Resuscitation Time spent 25 minutes Pito Linares DO Sep 14, 2016 10:24
--- NOTE | 2016-09-14 10:31 | PCM.PNMED ---
Subjective Date of Service Sep 14, 2016 Subjective Pt still anxious regarding 's discomfort. Believes he may be able to stay 1 additional week but this may be a stretch. Will try to work with us as long as possible, at least plans to remain in hospital a couple more days. Sleep still poor but no worse. Pain in knees and neck also still present but stable. Exam Vital Signs Vital Sign - Last Date Time Temp Pulse Resp B/P Pulse Ox O2 Delivery O2 Flow Rate FiO2 09/14/16 04:15 36.3 89 18 123/89 98 Room Air Intake and Output 09/13/16 09/13/16 09/14/16 Cumulative From/Thru 15:00 23:00 07:00 09/07/16 13:47 - 09/14/16 05:43 Intake Total 1366 ml 875 ml 41878 ml Output Total 1 ml Balance 1366 ml 875 ml 08642 ml Intake Oral 1312 ml 800 ml 60259 ml IV Total 54 ml 75 ml 620 ml Tube Irrigant 10 ml Output Urine Total 1 ml # Voids 3 2 36 # Bowel Movements 4 Exam General: Alert, Oriented X3, Cooperative, No Acute Distress Mouth: Mouth Normal Extremities: No cyanosis/clubbing/edema bilat Neurological: Grossly Neurologically Intact IVs and Medications Medications Reviewed: Medications were reviewed in detail Lab and Diagnostics Result Diagram: 09/14/16 0947 09/10/16 0415 Assessment & Plan # - C2-C3 Left Vertebral Facet Osteomyelitis - MSSA - Pt continued on Ancef IV, ID consulted will continue to follow. -His original antibiotic stop date from the ID team in [place] was October 16. That will be adjusted as indicated. -Should pt need to leave AMA, ID has suggestive a plan for alternative antibiotic therapy, likely NOT as effective but may offer some benefit non the less. -Pain reasonable controlled with current regime. -He was consuming very large amounts of both IV and oral opiates very recently in the hospital, now transitioned to oral therapy only, progress trace of nonsteroidal anti-inflammatory medications. -Continue daytime ibuprofen/oral Dilaudid, with the alteration of a lower ibuprofen dose to accommodate evening dosage of Toradol. # - IV Heroin/Meth use Urine drug screen was not obtained on admission Anticipate significant discussions on a daily basis regarding pain control with opiates. This complicates out patient IV therapy. - Chemical dependence consult requested and pending 3 - 2 Prior AM hospital departures in this treatment sequence The patient, per his prior actions, is likely to leave AGAINST MEDICAL ADVICE at some point in this treatment sequence. It would be challenging to find an outpatient/SNF facility that would treat him given the recent history. He would certainly not be a safe/ideal home IV PICC line discharge. Dr. Sanchez of infectious disease has made recommendations for antibiotic therapy should patient leave AMA which would be likely less effective may nonetheless her some benefit in treatment of his infection. His girlfriend's presence here overnight certainly seems to be a strong influence against leaving the hospital before treatment completion - ID will formulate a plan for above problem if needed. . - Consult Psychitry for further asistance treating patients multiple anxieties and life stressors. 4 - Mild Valvular Heart Disease - Identified on recent Echo in [place] = No definite Endocarditis, PE unremarkable. . 5 - hepatitis C No current treatment or symptoms. 6 - bilateral knee pain No signs of infection seeding or systemic bacteremia. Continues to be stable, not severe Blood cultures have been negative so far. Uric acid level not supportive of gout. Symptoms seem to be letting up this morning, essentially resolved. Continue when necessary pain medications as noted above 7. Insomnia: - Trazadone ineffective, notes side effects of agitation - Tranistion to Temazepam, with increased dosage this evening, 15mg not effective. - Continue PRN Temazepam 30mg PO HS Pain Evaluation: Adequate Pain Control VTE Prophylaxis: Other (he is thoroughly ambulatory without any increased immobilization, despite being hospitalized.) VTE Mechanical Devices: Venous Foot Pump Resuscitation Status: CPR: Attempt Resuscitation Time spent 30 minutes Pito Linares DO Sep 14, 2016 10:31
[2016-09-14 13:12] VITALS: BP 109/74; PULSE 97; RESP 16; O2SAT 99
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
--- NOTE | 2016-09-14 15:22 | PROG NOTE ---
[address] [address] PROGRESS NOTE PATIENT: HORTENCIA DOMÍNGUEZ : 1965 MR#: [id number] ADMIT: 09/07/2016 JOB ID: [id number] DATE: 09/14/2016 REASON FOR FOLLOWUP: C2, C3 MSSA osteomyelitis. INTERVAL HISTORY: The patient feels well. He notes that his energy and strength are returning rapidly. He walks around the floor without any trouble and states he is feeling better day by day. His neck pain is dissipating and he has no fevers, chills, or sweats. PHYSICAL EXAMINATION: Reveals an afebrile gentleman, temp 37.1, pulse 97, respiratory rate 16, blood pressure 109/74, saturating well on room air. No acute distress. Examination of the head unremarkable. The neck is essentially nontender. Lungs clear. Cardiac tones without murmur. PICC line in the right arm benign. LABORATORY DATA: Includes normal white count 7800, normal diff except 7% eosinophils, creatinine 0.64. ALT is 66. Micro blood cultures negative. MRSA screen of the nares negative. IMPRESSION: The patient is doing extremely well. We had hoped to continue with IV therapy through October 05 with cefazolin. The problem has arisen that his significant other, who resides with him in the room, states she is very bipolar and cannot be confined to a room. She also cannot be away from him as he functions as her only support mechanism on earth. Because of this, the patient tells me he will be forced to leave even though he is tolerating the therapy well. I told him he could not leave with a PICC line because of his history of active IV drug use and he has volunteered to come back every day to the [facility] to get an infusion of our choice. In checking the laboratories from [facility] in [place], it turns out, that there were very limited sensitivities performed for this organism. While we await additional susceptibilities, I am asking the patient to at least stay through the weekend with the plan to transition to a once-a-day IV treatment such as daptomycin once we have susceptibilities back on Saturday. RECOMMENDATIONS: 1. We have requested additional susceptibilities through the [facility]. 2. Will continue with Ancef until Saturday, and at that time, will transition to a once a day IV outpatient therapy which could be ceftriaxone or daptomycin.
--- NOTE | 2016-09-14 18:18 | NUR ---
Pain Pt c/o of bilateral knee pain 10/01, gave Dilaudid and Motrin with good relief, /. Pt has been walking hallway numerous times throughout the day. Pt cooperative with staff and care, actually happy today. Pt able to make needs known, with good appetite and voiding. PICC line flushing well, intentional rounding.
[2016-09-14 20:51] VITALS: BP 114/74; PULSE 97; RESP 16; O2SAT 98
[2016-09-15] MEDS: CeFAZolin 2 Gm/50 mL D5W IV Premix IV SCH ×3 (05:52→21:48)
[2016-09-15 06:00] VITALS: BP 109/68; PULSE 85; RESP 16; O2SAT 98
--- NOTE | 2016-09-15 11:52 | PCM.PNMED ---
Subjective Date of Service Sep 15, 2016 Subjective He is seen today to follow up the osteomyelitis and mood disorders. He plans to leave AMA in a few days per Dr. Sanchez's backup antibiotic plans. Currently waiting for the sensitivities to Ceftriaxone to come back on this MSSA infection. Possible daily IM or repeated daily IV insertion infusions to complete his 6 weeks of treatment is the AMA plan. Recent blood sugar level on a routine BMP came back elevated at 149. No history of diabetes. We will check A1c. Exam Vital Signs Vital Sign - Last Date Time Temp Pulse Resp B/P Pulse Ox O2 Delivery O2 Flow Rate FiO2 09/15/16 06:00 36.4 85 16 109/68 98 Room Air Intake and Output 09/14/16 09/14/16 09/15/16 Cumulative From/Thru 15:00 23:00 07:00 09/07/16 13:47 - 09/15/16 06:29 Intake Total 1049 ml 500 ml 13055 ml Output Total 1 ml Balance 1049 ml 500 ml 97967 ml Intake Oral 944 ml 400 ml 95507 ml IV Total 55 ml 100 ml 775 ml Tube Irrigant 50 ml 60 ml Output Urine Total 1 ml # Voids 5 3 44 # Bowel Movements 2 0 6 Exam Heart is regular rate and rhythm without murmur. Lungs are clear to auscultation bilaterally Extremities have no ankle edema He is sitting up in bed eating a large breakfast, with his girlfriend writing in her journal sitting on the guest bed. IVs and Medications Medications Reviewed: Medications were reviewed in detail Lab and Diagnostics Result Diagram: 09/14/16 0947 09/14/16 0947 Assessment & Plan # - C2-C3 Left Vertebral Facet Osteomyelitis - MSSA - Pt continued on Ancef IV, ID consulted will continue to follow. -His original antibiotic stop date from the ID team in [place] was October 16. That has been changed to October 05. -Should pt need to leave AMA, ID has suggestive a plan for alternative antibiotic therapy, likely NOT as effective but may offer some benefit non the less. -Pain reasonable controlled with current regime. -He was consuming very large amounts of both IV and oral opiates very recently in the hospital, now transitioned to oral therapy only -Continue daytime ibuprofen/oral Dilaudid, with the alteration of a lower ibuprofen dose to accommodate evening dosage of Toradol. # - IV Heroin/Meth use Urine drug screen was not obtained on admission 3 - 2 Prior AMA hospital departures in this treatment sequence The patient, per his prior actions, is likely to leave AGAINST MEDICAL ADVICE at some point in this treatment sequence. It would be challenging to find an outpatient/SNF facility that would treat him given the recent history. He would certainly not be a safe/ideal home IV PICC line discharge. Dr. Sanchez of infectious disease has made recommendations for antibiotic therapy should patient leave AMA which would be likely less effective may nonetheless her some benefit in treatment of his infection. His girlfriend's presence here overnight certainly seemed to be a strong influence against leaving the hospital early in this hospitalization, but is now the primary reason for him stating that he will leave AMA due to her mental conditions. - ID will formulate a plan for above problem if needed. . -Appreciate psychiatry's consult note and recommendations. 4 - Mild Valvular Heart Disease - Identified on recent Echo in [place] = No definite Endocarditis, PE unremarkable. . 5 - hepatitis C No current treatment or symptoms. 6 - bilateral knee pain Nearly completely resolved. Was seen by orthopedics, with normal uric acid level and x-rays. 7. Insomnia: - Trazadone ineffective, notes side effects of agitation - Tranistion to Temazepam, with increased dosage this evening, 15mg not effective. - Continue PRN Temazepam 30mg PO HS 8. Hyperglycemia - Check A1C VTE Prophylaxis: Other (he is thoroughly ambulatory without any increased immobilization, despite being hospitalized.) VTE Mechanical Devices: Venous Foot Pump Resuscitation Status: CPR: Attempt Resuscitation Hannah Stanley MD Sep 15, 2016 07:07
[2016-09-15 12:43] VITALS: BP 133/92; PULSE 101; RESP 18; O2SAT 98
[2016-09-15] MEDS ORDERED: 0.9% Sodium Chloride 250 ML ONE (13:21)
--- NOTE | 2016-09-15 15:39 | NUR ---
pain Pt c/o pain in neck and knees but denied need for pain meds. States nothing here has been effective. when asked what has worked in the past, pt stated "heroine" Tolerated IV abx well. will continue to monitor.
[2016-09-15 21:44] VITALS: BP 104/69; PULSE 108; RESP 17; O2SAT 98
[2016-09-16] MEDS: CeFAZolin 2 Gm/50 mL D5W IV Premix IV SCH ×3 (05:46→22:02)
[2016-09-16 05:54] VITALS: BP 110/73; PULSE 93; RESP 16; O2SAT 97
--- NOTE | 2016-09-16 13:04 | PROG NOTE ---
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 INTERVAL HISTORY: The patient reports that over the last couple of days he has been steadily improving. He has almost no neck pain left. No fevers, no chills. No sweats, cough, nausea, or vomiting. PHYSICAL EXAMINATION: Reveals an afebrile gentleman, in no acute distress. Temp 36.4, pulse 95, respiratory rate 16, blood pressure 110/73, saturating well on room air. Examination of the mental status reveals it to be normal. His neck is nontender. His lungs are clear. His abdomen is benign. No other rash noted. LABORATORIES: Include white count 7800, completely normal diff except 7% eos. Creatinine is 0.64. CRP was done and it is 0.4. Blood cultures done here are negative. Cultures we have from [place] yielded MSSA. Recall that on Saturday we had an extensive discussion with the micro lab at [place] and asked them to do daptomycin and other additional susceptibilities on the MSSA organism they had previously isolated some weeks ago. I called them back this morning and after considerable discussion on the phone found out that they no longer have the isolate. They did have a clindamycin susceptibility that was not reported to us, and it was susceptible, so all we that know about this MSSA, and all that we are going to find out, is that it is susceptible to oxacillin, vancomycin, and clindamycin. IMPRESSION: This patient has had a complicated course for his MSSA osteomyelitis C2-C3. He started off at the hospital in [place], then was at [facility], and then left there AMA. He was then admitted here for additional therapy with the plan to go to mid September. The patient's girlfriend lives with him in the room here and she reports she is bipolar and can no longer stand the confinement of being here and so the patient has told me that he plans to leave no later than tomorrow for his girlfriend's mental health and well being. He has stated explicitly that they are willing to come back and forth from their home in [facility] to get daily IV infusions of a once a day antibiotic using a new stick each day rather than an indwelling line. RECOMMENDATIONS: 1. Ceftriaxone is likely not as good as Ancef for this process; but, in view of the patient's improvement, his low CRP, and his stated desire to leave here tomorrow, I think ceftriaxone 2 g once a day represents a reasonable plan. Will continue with the ceftriaxone 2 g IV q.24 hours to be given in [facility] through October 05. 2. Weekly labs will be obtained and sent to me including CBC, CMP, and CRP. 3. I need to see the patient September 26 in my clinic. 4. On October 06, which would be the day after the completion of the ceftriaxone, the patient should be given a single 1.5 g dose of dalbavancin to complete his therapy for this neck infection. 5. The patient and his girlfriend have stated they do not wish to receive IV outpatient infusion at [facility] or any other facility in [place], even though it would be closer to their home, and for that reason we are entering into this rather complex agreement where they will come here daily for a new peripheral IV started infusion. Thank you very much.
--- NOTE | 2016-09-16 13:25 | PCM.PNMED ---
Subjective Date of Service Sep 16, 2016 Subjective He is seen today to follow-up the cervical spine osteomyelitis and IV drug abuse history. He is eating breakfast with his girlfriend in his room and was observed walking laps in the hallway. He is hoping to proceed with the alternative outpatient treatment plan that Dr. Sanchez has worked out for him. Exam Vital Signs Vital Sign - Last Date Time Temp Pulse Resp B/P Pulse Ox O2 Delivery O2 Flow Rate FiO2 09/16/16 05:54 36.4 93 16 110/73 97 Room Air Intake and Output 09/15/16 09/15/16 09/16/16 Cumulative From/Thru 15:00 23:00 07:00 09/07/16 13:47 - 09/16/16 06:20 Intake Total 80 ml 642 ml 855 ml 99244 ml Output Total 1 ml Balance 80 ml 642 ml 855 ml 25353 ml Intake Oral 592 ml 800 ml 13284 ml IV Total 80 ml 50 ml 55 ml 960 ml Tube Irrigant 60 ml Output Urine Total 1 ml # Voids 4 1 49 # Bowel Movements 0 1 7 Exam Heart is regular rate and rhythm without murmur Lungs are clear to auscultation bilaterally Extremities have no ankle edema There is no signs of neck pain he is observed walking and has increased stamina. IVs and Medications Medications Reviewed: Medications were reviewed in detail Lab and Diagnostics Result Diagram: 09/14/1694609/14/16946 Assessment & Plan # - C2-C3 Left Vertebral Facet Osteomyelitis - MSSA - Pt continued on Ancef IV -His original antibiotic stop date from the ID team in [place] was October 16. That has been changed to October 05. -Dr. Sanchez has dated the below alternative treatment plan which will go into effect tomorrow when the patient leaves before completion of his IV antibiotic regimen. 1. Ceftriaxone is likely not as good as Ancef for this process; but, in view of the patient's improvement, his low CRP, and his stated desire to leave here tomorrow, I think ceftriaxone 2 g once a day represents a reasonable plan. Will continue with the ceftriaxone 2 g IV q.24 hours to be given in he [facility] through October 05. 2. Weekly labs will be obtained and sent to me including CBC, CMP, and CRP. 3. I need to see the patient September 26 in my clinic. 4. On Eva 15, which would be the day after the completion of the ceftriaxone, the patient should be given a single 1.5 g dose of dalbavancin to complete his therapy for this neck infection. 5. The patient and his girlfriend have stated they do not wish to receive IV outpatient infusion at [facility] or any other facility in [place], even though it would be closer to their home, and for that reason we are entering into this rather complex agreement where they will come here daily for a new peripheral IV started infusion. # - IV Heroin/Meth use Urine drug screen was not obtained on admission 3 - Mild Valvular Heart Disease - Identified on recent Echo in [place] - No definite Endocarditis, PE unremarkable. . 5 - hepatitis C No current treatment or symptoms. 6 - bilateral knee pain Resolved Was seen by orthopedics, with normal uric acid level and x-rays. 7. Insomnia: - Trazadone ineffective - Continue PRN Temazepam 30mg PO HS 8. Hyperglycemia - A1c ordered yesterday is still pending. VTE Prophylaxis: Other (he is thoroughly ambulatory without any increased immobilization, despite being hospitalized.) VTE Mechanical Devices: Venous Foot Pump Resuscitation Status: CPR: Attempt Resuscitation Hannah Stanley MD Sep 16, 2016 09:19
--- NOTE | 2016-09-16 15:19 | NUR ---
Social Work: Chemical Dependency Assessment Attempted Data: Pt is on day 9 of hospitalization. EMR reviewed. FUNERAL HOME ASSOCIATE acknowledges order for CDA. FUNERAL HOME ASSOCIATE met with pt at bedside, role explained. Pt declines CD resources and assessment at this time stating that he plans to move to [place] after d/c in the [place] area. FUNERAL HOME ASSOCIATE asked if he was interested in CD resources for that area, pt declines but states he would be interested in MH resources for that area. FUNERAL HOME ASSOCIATE found multiple MH resources for the [place] area, printed for pt, and gave it to them. Pt reports no further FUNERAL HOME ASSOCIATE need at this time. FUNERAL HOME ASSOCIATE left phone number on pt's board. Assessment: Pt with psych and drug hx. Plan: Pt will d/c to community when medically stable. FUNERAL HOME ASSOCIATE attempted CD assessment, pt declined, MH resources given per pt's request for [place], [place]. Pt reports no further FUNERAL HOME ASSOCIATE need at this time. FUNERAL HOME ASSOCIATE left phone number on pt's board. FUNERAL HOME ASSOCIATE will continue to follow. LARA Lopez
[2016-09-16 15:31] VITALS: BP 111/76; PULSE 77; RESP 18; O2SAT 97
--- NOTE | 2016-09-16 15:56 | NUR ---
Sleepy Pt asleep most shift, states he doesn't sleep well here at night. Tolerated IV abx well. Is anxious about discharge tomorrow.
[2016-09-16 20:11] VITALS: BP 115/86; PULSE 104; RESP 18; O2SAT 99
[2016-09-17] MEDS: CeFAZolin 2 Gm/50 mL D5W IV Premix IV SCH ×2 (06:07→14:17)
[2016-09-17 06:11] VITALS: BP 104/74; PULSE 91; RESP 18; O2SAT 98
[2016-09-17 06:27] LABS: Mean Corpuscular Hemoglobin 29.7 pg (27.0-35.0); Mean Corpuscular Volume 91.5 fL (81-100)
[2016-09-17 09:14] VITALS: BP 106/69; PULSE 98; RESP 17; O2SAT 100
--- NOTE | 2016-09-17 17:08 | NUR ---
i went in to take patients vitals and he refused he said there was no reason for me to take vitals he is ready to leave
[2016-09-17] MEDS ORDERED: IBUP-1827 PO (18:03)
--- NOTE | 2016-09-17 18:08 | PCM.DIMED ---
Discharge Instructions Date of Service Sep 17, 2016 Dates of Hospitalization Sep 07, 2016 at 17:55 Discharge Diagnosis Discharge Diagnosis Osteomyelitis of Spine, Non-Rheumatic AV insuff, Polysubstance abuse/IVDU Medication Instructions Additional med instructions 1. Will continue with the ceftriaxone 2 g IV q.24 hours to be given in [facility] through October 05. 2. On October 06, which would be the day after the completion of the ceftriaxone, the patient should be given a single 1.5 g dose of dalbavancin to complete his therapy for this neck infection. Diet Discharge Diet: No restrictions Activity Discharge Activity: No restrictions Call your provider Call your provider for: Fever or Chills, Shortness of breath, Bleeding, Chest pain, Vomitting, Excessive diarrhea, Weakness (unilateral), Other Patient Instructions Patient Instructions 1. Will continue with the ceftriaxone 2 g IV q.24 hours to be given in [facility] through October 05. 2. Weekly labs will be obtained and sent to me including CBC, CMP, and CRP. 3. Dr. Sanchez needs to see the patient September 26 in my clinic. 4. On October 06, which would be the day after the completion of the ceftriaxone, the patient should be given a single 1.5 g dose of dalbavancin to complete his therapy for this neck infection. 5. The patient and his girlfriend have stated they do not wish to receive IV outpatient infusion at [facility] or any other facility in [place], even though it would be closer to their home, and for that reason we are entering into this rather complex agreement where they will come here daily for a new peripheral IV started infusion. Follow-up plan 1. Will continue with the ceftriaxone 2 g IV q.24 hours to be given in [facility] through October 05. 2. Weekly labs will be obtained and sent to me including CBC, CMP, and CRP. 3. Dr. Sanchez needs to see the patient September 26 in my clinic. 4. On October 06, which would be the day after the completion of the ceftriaxone, the patient should be given a single 1.5 g dose of dalbavancin to complete his therapy for this neck infection. 5. The patient and his girlfriend have stated they do not wish to receive IV outpatient infusion at [facility] or any other facility in [place], even though it would be closer to their home, and for that reason we are entering into this rather complex agreement where they will come here daily for a new peripheral IV started infusion. Follow-up with PCP in: 1 week Bren Gordon DO Sep 17, 2016 18:08
--- NOTE | 2016-09-17 18:08 | PCM.PNMED ---
Subjective Date of Service Sep 17, 2016 Subjective 50 yo WM HepC, tobacco abuse, IVDU , opiate dependence here for neck osteomyelitis. was treated at [facility]'s went yo [facility] to complete abx, left AMA, came to [facility]. Currently on Ancef. Exam Vital Signs Vital Sign - Last Date Time Temp Pulse Resp B/P Pulse Ox O2 Delivery O2 Flow Rate FiO2 09/16/16 20:11 36.4 104 18 115/86 99 Room Air Intake and Output 09/16/16 09/16/16 09/17/16 Cumulative From/Thru 15:00 23:00 07:00 09/07/16 13:47 - 09/17/16 04:14 Intake Total 778 ml 95130 ml Output Total 1 ml Balance 778 ml 61207 ml Intake Oral 708 ml 86339 ml IV Total 70 ml 1030 ml Tube Irrigant 60 ml Output Urine Total 1 ml # Voids 3 52 # Bowel Movements 7 Exam Heart is regular rate and rhythm without murmur Lungs are clear to auscultation bilaterally Extremities have no ankle edema There is no signs of neck pain he is observed walking and has increased stamina. His neck is nontender. His lungs are clear. His abdomen is benign. No other rash noted. Lab and Diagnostics Result Diagram: 09/14/1694609/14/16946 Assessment & Plan # - C2-C3 Left Vertebral Facet Osteomyelitis - MSSA - Pt continued on Ancef IV -His original antibiotic stop date from the ID team in [place] was October 16. That has been changed to October 05. -Dr. Sanchez has dated the below alternative treatment plan which will go into effect tomorrow when the patient leaves before completion of his IV antibiotic regimen. 1. Ceftriaxone is likely not as good as Ancef for this process; but, in view of the patient's improvement, his low CRP, and his stated desire to leave here tomorrow, I think ceftriaxone 2 g once a day represents a reasonable plan. Will continue with the ceftriaxone 2 g IV q.24 hours to be given in he [place] through October 05. 2. Weekly labs will be obtained and sent to me including CBC, CMP, and CRP. 3. I need to see the patient September 26 in my clinic. 4. On October 06, which would be the day after the completion of the ceftriaxone, the patient should be given a single 1.5 g dose of dalbavancin to complete his therapy for this neck infection. 5. The patient and his girlfriend have stated they do not wish to receive IV outpatient infusion at [facility] or any other facility in [place], even though it would be closer to their home, and for that reason we are entering into this rather complex agreement where they will come here daily for a new peripheral IV started infusion. # - IV Heroin/Meth use Urine drug screen was not obtained on admission 3 - Mild Valvular Heart Disease - Identified on recent Echo in [place] - No definite Endocarditis, PE unremarkable. . 5 - hepatitis C No current treatment or symptoms. 6 - bilateral knee pain Resolved Was seen by orthopedics, with normal uric acid level and x-rays. 7. Insomnia: - Trazadone ineffective - Continue PRN Temazepam 30mg PO HS 8. Hyperglycemia - A1c ordered yesterday is still pending. VTE Prophylaxis: Other (he is thoroughly ambulatory without any increased immobilization, despite being hospitalized.) VTE Mechanical Devices: Venous Foot Pump Resuscitation Status: CPR: Attempt Resuscitation Bren Gordon DO Sep 17, 2016 05:16
--- NOTE | 2016-09-17 19:09 | NUR ---
Discharge Pt to be discharged to home. Discharge paperwork given and explained. Hard copy rx given. Lab requisition given. Instructed to go to [facility] tomorrow at 2pm for OP infusion. Pt vocalizes understanding. PICC line pulled per IV therapy.
--- NOTE | 2016-09-17 19:25 | NUR ---
Discharge pt and significant other left [facility] at 19:13, personal belongings with pt. 1 personal pillow and 1 t-shirt found in room after they left, this RN called the phone number for the patient that was provided in the chart, the answering machine named "Clarisse" on the voicemail machine, message left for patient regarding the pillow and t-shirt, no response at this time.
--- NOTE | 2016-09-20 06:14 | PCM.DC.MED ---
Discharge Summary Date of Service Sep 20, 2016 Dates of Hospitalization Date of Hospital Admission Sep 07, 2016 at 17:55 Date of Discharge: Sep 17, 2016 Providers: Admitting Physician: Sania Sebastian DO Primary Care Physician: Fernanda Attending Physician: Sania Sebastian DO Diagnosis at Time of Discharge Diagnosis at Time of Discharge Osteomyelitis of Spine, Non-Rheumatic AV insuff, Polysubstance abuse/IVDU Consultations ID Brief History This is a 50-year-old male admitted after spending 2 nights at home with a known C2/C3 facet osteomyelitis on the left side. He had been hospitalized at [facility] in [place], then left there AMA, treated with weekly Dalvabancin, but pain worsened and MRI documented worsening infection. He was then placed on nafcillin with plans for 6 weeks of antibiotics. He was then transferred to a swing bed at [facility] and spent 1 or 2 nights there before leaving AGAINST MEDICAL ADVICE, at the time leaving the impression that he was leaving because he could not receive IV Dilaudid in that setting. He was receiving very large amounts of oral Dilaudid. Please see the notes below and the reference to his IV drug use which is suspected to have recurred in the last 2 days. DOS 09/04/16 Primary Care Physician:~~JILL Lloyd Outpatient Specialists:~Dr. Christensen HPI: Hortencia Barrios~is an 50 y.o.~male~with C2-C3 Osteomyelitis presenting today for IV Nafcillin until October 16, although the patient prefers to count from the beginning of his original failed ABX course, which would put his final date of Nafcillin on October 05. ~He claims to have no ID followup appointment, but the overall plan is to continue Nafcillin until ID says to stop it. ~~His medical records from the hospital in [place] document:::: "Hortencia Barrios is a 50-year-old male who was discharged from the hospital on the of this month after a 4 day admission for MSSA septicemia secondary to IV drug use. He had a septic left C2-3 facet joint with osteomyelitis. Echo was not definitive for endocarditis. He was discharged against medical advice on once a week IV Dalbavancin. He was having worsening pain yesterday and Dr. erwin arrange for an outpatient MRI that is now positive for discitis and osteomyelitis at C2 and C3". Pt was evaluated by Dr. Dickey and Dr. Wolff of ID. It was recommended that he continued Nafcillin 2gm IV q4h for 6-8 weeks, or through October 16 which will be six weeks. Exact duration will be left to ID. Pt will get CBC and CMP bi- weekly while on antibiotic. At discharge, pt's neck pain was slowly improving. Pt was informed that the use of IV and PO pain medication will be wean off before he is [place] [facility]. There were no neurologic deficits or symptoms of worsening infection. 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, Rx start 08/11/2016 08/12/2016 Priority: High Polysubstance abuse 08/12/2016 Priority: High Osteomyelitis of spine (HCC) MSSA (methicillin susceptible Staphylococcus aureus) septicemia ([facility]) Heroin use Methamphetamine use Nonrheumatic aortic valve insufficiency 08/14/2016 Opiate dependence (HCC) 08/14/2016 Staphylococcus aureus septicemia, Rx start 08/11/2016 08/12/2016 HCV antibody positive 08/12/2016 Normocytic anemia 08/12/2016 Tobacco dependence 08/12/2016 Vertebral osteomyelitis (HCC) 08/12/2016 Past Surgical History: Procedure Laterality Date arm surgery Allergies and Medications: Inpatient Meds at the hospital PrescriptionsPriortoAdmission Prescriptions Prior to Admission Medication Sig Dispense Refill Last Dose acetaminophen (TYLENOL) 325 MG tablet Take 2 tablets (650 mg total) by mouth every 6 (six) hours as needed 30 tablet 0 09/03/2016 at 2347 ibuprofen (MOTRIN) 200 MG tablet Take 400 mg by mouth every 6 (six) hours as needed for Pain 09/04/2016 at 0935 NS 0.9 % SolP 100 mL with nafcillin 1 gram SolR 2,000 mg Inject 2,000 mg into the vein every 4 (four) hours ~for 28 days 168 Dose 0 09/04/2016 at 1200 oxyCODONE (ROXICODONE) 5 MG immediate release tablet Take 1-3 tablets (5-15 mg total) by mouth every 3 (three) hours as needed 30 tablet 0 09/02/16 at 0807 traMADol (ULTRAM) 50 mg tablet Take 1 tablet (50 mg total) by mouth every 6 (six) hours as needed 30 tablet 0 09/04/2016 at 1343 fbbzimj-tjlxlrcrorrwx-walrxvpl (EXCEDRIN EXTRA STRENGTH) 250-250-65 mg 250-250- 65 mg per tablet Take 1 tablet by mouth every 6 (six) hours as needed for Pain Unknown at Unknown time calcium carbonate (TUMS) 200 mg calcium (500 mg) chewable tablet Take 2 tablets (1,000 mg total) by mouth 2 (two) times daily as needed 30 tablet 0 Unknown at Unknown time diphenhydrAMINE (BENADRYL) 25 mg capsule Take 1-2 capsules (25-50 mg total) by mouth every 6 (six) hours as needed 30 capsule 0 Unknown at Unknown time methocarbamol (ROBAXIN) 500 MG tablet Take 500 mg by mouth 4 (four) times daily as needed for Muscle spasms ~Take 1 tablet every 6 hours as needed for severe neck pain ONLY. ~Do NOT take if using Heroin or other drugs. #10 dispensed on 08/09/16 Unknown at Unknown time polyethylene glycol (MIRALAX) 17 gram/dose oral powder Dissolve 1 capful (17 g) in 8 ounces of water and drink by mouth. 527 g 0 Unknown at Unknown time INPATIENT MEDICATION LIST: Scheduled Meds: nafcillin (NALLPEN) IVPB (100 mL) ~2,000 mg IV Q4H Continuous Infusions:~ PRN Meds:acetaminophen, calcium carbonate, diphenhydrAMINE, ibuprofen, methocarbamol, oxyCODONE, polyethylene glycol, traMADol~~~~~~~~~~~~~~~~~~ Allergies: Allergies Allergen Reactions Lorazepam Other (See Comments) Patient stated had "terrifying nightmares" within about an hour of receiving Ativan (po) + Compazine (iv). Prochlorperazine Other (See Comments) Pt reported "terrifying nightmares" within about an hour of receiving ativan (po ) and compazine (iv). Oxycodone: ~Causes nightmares and paranoia Social History: Social History Substance Use Topics Smoking status: Current Every Day Smoker Packs/day: 0.50 Types: Cigarettes Smokeless tobacco: None Alcohol use Yes Comment: rare Family History: History reviewed. No pertinent family history. Review of Systems: General ROS: No chest pain, SOB, Nausea, Vomiting, Bleeding, Seizures, Depression, Rash, Dysuria, Joint Pain, Coughing, Abdominal Pain, Sore Throat Physical Examination: Vitals: ~Vital signs and trends reviewed. Vitals: 09/04/16 1522 BP: 145/88 Pulse: 93 Resp: 18 Temp: 37.1 C (98.7 F) SpO2: 98% General: Not chronically ill appearing, appears stated age and cooperative HEENT: Normocephalic, without obvious abnormality, conjunctivae clear. PERRL, EOM's intact. Lips, mucosa, and tongue normal; teeth and gums normal for age, JVD 6 cm at 45 degrees, neck supple, symmetrical, trachea midline and thyroid grossly normal in appearance Respiratory: normal respiratory effort, lungs clear to ausculation on anterior/ posterior exam Cardiovascular: regular rate and rhythm, S1, S2 normal, variable 1/6 CRYSTAL, pedal pulses 2+ and symmetric, ~no edema in bilateral lower extremities Abdomen: soft, ~non-tender; bowel sounds normal; no masses or organomegaly appreciated MSK: extremities have normal bulk and tone, no cyanosis, intact ROM and 5/5 strength in all four extremities Skin: Warm and dry on palpation without significant lesions Neurologic:~Face symmetric, CN grossly intact, Normal tone and sensation to light touch in all four extremities Psych: Alert/oriented x3, normal affect and insight LINES:~PICC in the right upper arm. RECENT LAB VALUES: ~ Recent Labs ~09/03/16 ~0607 WBC ~7.1 HGB ~13.2 HCT ~40.8 PLTCT ~372 Recent Labs ~09/03/16 ~0607 NA ~139 K ~3.9 CL ~105 CO2 ~27 BUN ~13 CREAT ~0.80 CALCIUM ~8.6 ALBUMIN ~3.1* BILITOT ~0.7 ALKPHOS ~57 ALT ~66* AST ~34 : Other Imaging: Mr Cervical Spine Wo/w Contrast Result Date: 08/22/2016 MR CERVICAL SPINE WO/W CONTRAST Clinical: NECK PAIN Comparison: Comparison is made to MRI of 08/11/2016 Procedure:Standard MR imaging was performed without and with intravenous contrast. Contrast: 16 cc of ProHance was administered. Findings: Comparison is made to MRI of 08/11/2016. Again noted is a abnormal left C2-3 facet joint with abnormal bone marrow edema joint effusion and synovitis with surrounding soft tissue edema and enhancement concerning for septic joint. There is enhancement of the left C2 lamina similar to the prior study. Today's examination is abnormal enhancement of the anterior aspect of the C2 and the C3 vertebral bodies. There is new enhancement at the posterior left lateral margin of the disc seen on series 9 images 6 and 7. This is concerning for discitis and osteomyelitis. The infectious process appears to progressed since the patient's previous study. No epidural abscess is identified. There continues to be edema and enhancement in the prevertebral soft tissues, similar to the patient's prior study. 1. Prior MRI from 08/11/2016 had demonstrated a septic C2-3 facet joint. The infection appears to have progressed since that prior exam with left lateral C2- 3 discitis and osteomyelitis at C2 and C3 anteriorly. There is increasing edema and enhancement in the surrounding soft tissues. No epidural abscess identified. Abnormal edema and enhancement in the prevertebral soft tissues persists. Electronically signed by: Claudia Tejeda MD 08/22/2016 4:25 PM, [facility]. Mr Spine (screening) Wo/w Contrast Result Date: 08/11/2016 MR SPINE (SCREENING) WO/W CONTRAST Clinical: MSSA septicemia IVDA Neck pain Comparison: ~~~Procedure:Standard MR imaging was performed. +20 cc of ProHance were administered. Findings: Cervical spine: There is abnormal edema and enhancement in the prevertebral soft tissues. There is abnormal edema and enhancement in the posterior soft tissues of the cervical spine in the paraspinous muscles. There appears to be enhancement at the left C2-3 facet with widening of the facet, which is concerning for septic joint. Additionally there appears to be abnormal edema and enhancement at the C2 and the C3 facet concerning for osteomyelitis.. The right facet joint does not demonstrate significant enhancement or edema. There appears to be mild dural enhancement without epidural abscess. No soft tissue abscess is identified. Thoracic spine: Alignment and curvature of the thoracic spine is anatomic. Vertebral body height is normal. Intervertebral disc height is normal. No discitis identified. No septic facet joints are seen. No abnormal edema or enhancement in the paraspinous soft tissues. Lumbar spine: Alignment and curvature of the lumbar spine is anatomic. There is mild degenerative disc and endplate disease. No discoid is or osteomyelitis identified. No epidural abscess is seen. Paraspinous soft tissues do not demonstrate significant edema or enhancement. No soft tissue abscess is seen. 1. Findings concerning for septic left C2-3 facet joint with osteomyelitis. There is abnormal edema and enhancement in the prevertebral soft tissues anteriorly and in the posterior paraspinous musculature. The edema and enhancement appear to involve the neural foramen. No soft tissue abscess is seen. There is dural enhancement without focal epidural abscess. Electronically signed by: Claudia Tejeda MD 08/11/2016 4:09 PM, [facility] Time. X-ray Chest Pa And Lateral Result Date: 08/09/2016 XR CHEST 2V AP/PA AND LAT Clinical: JOINT PAIN, iv drug use Comparison: 2014 Findings: No pneumothorax, pleural effusion or airspace consolidation. ~ Heart size and mediastinal contours are normal. ~Lungs are well expanded. ~No acute osseous abnormality identified. ~Right nipple ring incidentally noted. 1. ~No acute radiographic abnormality of the chest. Electronically signed by: Kiko Pierre MD 08/09/2016 7:45 AM, [facility] Time. Xr Femur Left 2v Result Date: 08/12/2016 XR FEMUR LEFT 2V, XR PELVIS 1-2V Clinical: MSSA septicemia, IVDA Comparison: Findings: There is a 7 mm linear radiolucency in the soft tissue of the left hip, projecting just inferior to the greater trochanter, potentially a radiodense foreign body within the soft tissues. Underlying bony structures intact. ~Left femur intact. ~Alignment at the hip and knee anatomic. ~No knee effusion. Bony pelvis intact. ~SI joints and pubic symphysis intact. ~Frontal views of the hips demonstrate preserved joint spaces. Impression: 7 mm possible radiodense foreign body in the soft tissue of the left hip, just inferior to the greater trochanter. Electronically signed by: Mara Romero MD 08/12/2016 4:00 PM, [facility] Time. Xr Hip Right 2+v Complete Result Date: 08/11/2016 XR HIP RIGHT 2+V COMPLETE Clinical: GENERALIZED BODY ACHES FATIGUE HEADACHE RIGHT HIP TENDERNESS Comparison: ~~~Findings: No hip fracture dislocation or AVN identified. No significant hip arthritis is seen. There are small subchondral cysts at the femoral head neck junction but no osseous hypertrophy identified. No acute process seen Electronically signed by: Claudia Tejeda MD 08/11/2016 6: 16 AM, [facility] Time. X-ray Pelvis 1-2 Views Result Date: 08/12/2016 XR FEMUR LEFT 2V, XR PELVIS 1-2V Clinical: MSSA septicemia, IVDA Comparison: Findings: There is a 7 mm linear radiolucency in the soft tissue of the left hip, projecting just inferior to the greater trochanter, potentially a radiodense foreign body within the soft tissues. Underlying bony structures intact. ~Left femur intact. ~Alignment at the hip and knee anatomic. ~No knee effusion. Bony pelvis intact. ~SI joints and pubic symphysis intact. ~Frontal views of the hips demonstrate preserved joint spaces. Impression: 7 mm possible radiodense foreign body in the soft tissue of the left hip, just inferior to the greater trochanter. Electronically signed by: Mara Romero MD 08/12/2016 4:00 PM, [facility]. X-ray Wrist Right Complete Result Date: 08/11/2016 XR WRIST RIGHT 3V Clinical: GENERALIZED BODY ACHES FATIGUE HEADACHE Comparison: ~~~Findings: No acute fracture or dislocation identified. No radiodense foreign bodies are seen. No significant arthritis. Impression: No acute fracture seen Electronically signed by: Claudia Tejeda MD 08/11/2016 6:16 AM, [facility]. Ct Head Wo Contrast Result Date: 08/09/2016 CT HEAD WO CONTRAST Clinical: headache ~~Comparison: None Procedure:Multislice CT imaging was performed. Exam was performed within 24 hours of admission. Findings: CEREBRUM: Normal. No bleed, mass effect, or visible infarct. POSTERIOR FOSSA: Normal. VESSELS: Normal for age, with mild atherosclerotic calcification. SINUSES, MASTOIDS: Visualized portions normal. ORBITS: Normal. SKULL: Normal for age. Impression: 1. Normal head CT for age. [facility] rendered a preliminary interpretation made available by fax @ [phone] [email or web address] [phone] Electronically signed by: Shiv Pizarro MD 08/09/2016 7:56 AM, [facility]. Echo Complete Per Protocol Result Date: 08/12/2016 ~~~~~~~~~~~~~~~~~~~~~~~~~~~~~~~~~~~~~~~~~~~~~~~~~~~~~~~~~~~~~~Study ID: [id number] ~ ~~~~~~~~~~~~~~~~~~~~Adult Echocardiogram ~~~~~~~~~~~~~~~~~~~~~~~~~~~~~~~~~~~~~~~ ~~~~~~~~[address] ~~~~~~~~~~~~~~~~~~~~~~~~~~~~~~~~~~~~~~~~~~~~~~~ [place], [place] [address] ~~~~~~~~~~~~~~~~~~~~~~~~~~~~~~~~~~~~~~~~~~~~~~~ Name: HORTENCIA BARRIOS RStudy Date: 08/12/2016 09:05 AM ~~~~~~~~~~~~~~BP: 110/ 72 m mHg ~~~~~Pt Location: [facility] 4 MS^[id number] : 1965 ~ ~~Ordering MD: LORENA SEXOTN ~~~~~~~~~~~~~~~Height: 74 in Age: 50 yrs ~~~~~~ ~Referring MD: LORENA SEXTON ~~~~~~~~~~~~~~Weight: 207 lb Gender: Male ~~~~~ ~Performed By: Surekha Mac, KYMBSA: 2.2 m2 Reason For Study: GENERALIZED BODY ACHES Conclusions Normal LV systolic function with an LVEF of 60% Dilated right ventricle with normal systolic function Minimal right atrial dilatation Mitral valve sclerosis with mild regurgitation Aortic valve sclerosis with moderate aortic valve insufficiency Moderate tricuspid regurgitation with mildly elevated pulmonary pressures and an RVSP of 36 mm mercury Cannot exclude chronic or acute pulmonary emboli here Trace pulmonic insufficiency No pericardial effusion No dramatic valvular vegetations identified here. If a higher sensitivity for the detection of valvular vegetations is desired and would be clinically helpful, could consider transesophageal echocardiography No previous echocardiogram available for comparison. Procedure 2-D transthoracic echocardiogram with color flow and Doppler. Left Ventricle Left ventricular ejection fraction is 60%. Normal left ventricular chamber size, wall thickness and systolic function. Mild (Gr. I) left ventricular diastolic relaxation abnormality is demonstrated. Right Ventricle The right ventricle is dilated. Normal right ventricular systolic function. RV Base=4.2. RV S' Rito 13 cm/sec. TAPSE distance is 24 mm. Atria The left atrium is normal in size. The right atrium is mildly dilated. The left atrial volume indexed to BSA is calculated to be 32 cc/m2. Mitral Valve Mild sclerocalcific changes of the mitral valve are present. Mild mitral regurgitation is present. Aorta / Aortic Valve Aortic leaflets are mildly sclerotic (without stenosis). Normal aortic root diameter. Moderate aortic insufficiency is demonstrated. Tricuspid Valve Normal tricuspid valve appearance. Moderate tricuspid regurgitation is present. Estimated RA pressure is 8 mmHg. Peak estimated pulmonary artery pressure is 36 mmHg. Pulmonic Valve The pulmonic valve is not adequately visualized. Trace (physiologic) pulmonic insufficiency is present. Pericardium Normal pericardium appearance without effusion. MMode/2D Measurements and Calculations IVSd: 0.72 cm ~~~~~~~~LVIDd: 5.3 cm ~~~~~~~FS: 27.9 % ~~~~~~~% IVS thick: IVSs: 1.2 cm ~~~~~~~~~LVIDs: 3.8 cm ~~~~~~~~~~~~~~~~~~~~~~~~~69.0 % ~~~~~~~~~~~~~~~~~~~~~~LVPWd: 0.85 cm ~~~~~~~~ ~~~~~~~~~~~~~~LVPWs: 1.3 cm ~~~~~~~~ Aorta annulus: 2.0 cm Ascending Aorta: ~~~~LVOT diam: 2.1 cm LAs major: 6.1 cm LA dimension: 3.1 cm ~3.4 cm ~~~~~~~~ Billy major: 5.2 cm ~~~~ESV(MOD-sp2): ~~ ~~~~~SV(MOD-sp4): ~~~~~TAPSE_phl: 2.4 cm ~~~~~~~~~~~~~~~~~~~~~~26.1 ml ~~~~~~~~~ ~~~~41.0 ml ~~~~~~~~~~~~~~~~~~~~~~ESV(sp2-el): 23.3 ml ~~~~~~~~ Ao Sinus Diam_phl: ~~~Ao STJ Diam _phl: ~~~~IVC Diam_phl: ~~~~RV Base_phl: 2.9 cm ~~~~~~~~~~~~~~~2.8 cm ~~~~~~~~~~ ~~~~2.6 cm ~~~~~~~~~~~4.2 cm ~~~~~~~~ LA vol index: 31.7 ml/m2 Doppler Measurements and Calculations MV A dur: 0.12 sec MV dec time: ~~~~~~Ao V2 max: ~~~~~~~~~AI max rito: MV E max rito: ~~~~~0.22 sec ~~~~~~~~~~153.5 cm/sec ~~~~~~~443.3 cm/sec 73.8 cm/sec ~~~~~~~~~~~~~~~~~~~~~~~~~~Ao max P.4 mmHg AI P1/2t: MV A max rito : ~~~~~~~~~~~~~~~~~~~~~~~~Ao mean P.0 upIp059.4 msec 81.2 cm/sec MV E/A: 0.91 ~~~~~~~~~~~~~~~~~~~~~~~~~LEIF(I,D): 2.5 cm2 LV IVRT: 0.07 sec ~~~~~~~~ LV V1 max: ~~~~~~~~SV( LVOT): 81.3 ml ~PA V2 max: ~~~~~~~~~TR max rito: 113.9 cm/sec ~~~~~~~~~~~~~~~~~~~ ~~~~~~95.3 cm/sec ~~~~~~~~264.0 cm/sec ~~~~~~~~~~~~~~~~~~~~~~~~~~~~~~~~~~~~~~~~~ ~~~~~~~~~~~~~~~~~TR max PG: ~~~~~~~~~~~~~~~~~~~~~~~~~~~~~~~~~~~~~~~~~~~~~~~~~~~~ ~~~~~~27.9 mmHg ~~~~~~~~~~~~~~~~~~~~~~~~~~~~~~~~~~~~~~~~~~~~~~~~~~~~~~~~~~RVSP( TR): 35.9 mmHg ~~~~~~~~ RAP systole: ~~~~~~Pulm Sys Rito: ~~~~~Lat Peak E' Rito: ~~~Med Peak E' Rito : 8.0 mmHg ~~~~~~~~~~54.0 cm/sec ~~~~~~~12.8 cm/sec ~~~~~~~~9.7 cm/sec ~~~~~~~~~ ~~~~~~~~~~Pulm Martinez Rito: ~~~~~~~~~~~~~~~~~~~39.1 cm/sec ~~~~~~~~~~~~~~~~~~~Pulm A Revs Rito: ~~~~~~~~~~~~~~~~~~~31.3 cm/sec ~~~~~~~~~~~~~~~~~~~Pulm A Revs Dur: ~ ~~~~~~~~~~~~~~~~~~0.11 sec ~~~~~~~~~~~~~~~~~~~Pulm S/D: 1.4 ~~~~~~~~ E/E' lat: 5.8 ~~~~~E/E' med : 7.6 ~~~~~~~~ Interpreted by:Jung Lamar MD ~on 08/12/2016 12:34 PM Assessment: 50 y.o.~male~with Osteomyelitis and possible Valvular Endocarditis presenting today for IV Nafcillin. At the ACU he is uncooperative and is demanding IV Dilaudid. He is admitted to the Swing Bed - SNF status. Plan: 1. C2/C3 Facet Osteomyelitis of MSSA Septicemia - Continue IV Nafcillin until 10/16 or other date as assigned by ID. - The patient hopes to stop IV Nafcillin on 10/05 since that is 6 weeks from his first starting date. - Will need follow up arranged with Dr. Christensen - Check CBC and BMP weekly - Will stop Oxycodone and use PO DIlaudid. - Dr. Sexton told me that he told the patient that his opiates would be stopped/ tapered down before completing the Nafcillin. ~He also declined to give him the Adderall for ADHD that the patient has recently announced he has been diagnosed with. ~ 2. IV Meth and Heroin abuse - No IV opiates - Taper off all opiates over the next 4 - 6 weeks 3. Mild Valvular heart disease - Complete 6-8 weeks of Nafcillin for MSSA Sepsis 4. Hepatitis C 5. The patient has left AMA from [facility] last month before and as soon as he arrived here indicated that he would do the same here if his demands are not met. ~He was overheard calling his family to come and get him. 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, Rx start 08/11/2016 Staphylococcus aureus septicemia, Rx start 08/11/2016 Polysubstance abuse HCV antibody positive Normocytic anemia Tobacco dependence Vertebral osteomyelitis (HCC) Nonrheumatic aortic valve insufficiency Opiate dependence (HCC) Osteomyelitis of spine (HCC) MSSA (methicillin susceptible Staphylococcus aureus) septicemia (HCC) Heroin use Methamphetamine use Emergency Contact: Extended Emergency Contact Information Primary Emergency Contact: Clarisse Mendoza ~[place] Mobile Relation: CODE STATUS: Full Electronic notification have been sent to the patient's PCP (JILL Lloyd ) GARCÍA ALVAREZ MD Accepted care at 1515. Lying in side in room, "I feel belkys shit. It feels like someone is sitting on my neck." Cooperative, flat affect. 1800: "I am going to [facility] ~straight away. This is a hardship on my family (being here)." States "does not care" what may occur if leaves AMA. Signed AMA paper work, Dr. Waters notified, currently awaiting 's arrival, PICC out. 1999: Out to nurse's station, talking on phone to , "I can see my Dr. first thing in the morning." Left ambulatory with multiple bags of belongings at 1830. Hospital Course # - C2-C3 Left Vertebral Facet Osteomyelitis - MSSA - Pt continued on Ancef IV -His original antibiotic stop date from the ID team in [place] was October 16. That has been changed to October 05. -Dr. Sanchez has dated the below alternative treatment plan which will go into effect when the patient leaves before completion of his IV antibiotic regimen. 1. Ceftriaxone is likely not as good as Ancef for this process; but, in view of the patient's improvement, his low CRP, and his stated desire to leave here tomorrow, I think ceftriaxone 2 g once a day represents a reasonable plan. Will continue with the ceftriaxone 2 g IV q.24 hours to be given in he MOC through October 05. 2. Weekly labs will be obtained and sent to me including CBC, CMP, and CRP. 3. I need to see the patient September 26 in my clinic. 4. On October 06, which would be the day after the completion of the ceftriaxone, the patient should be given a single 1.5 g dose of dalbavancin to complete his therapy for this neck infection. 5. The patient and his girlfriend have stated they do not wish to receive IV outpatient infusion at [facility] or any other facility in [place], even though it would be closer to their home, and for that reason we are entering into this rather complex agreement where they will come here daily for a new peripheral IV started infusion. # - IV Heroin/Meth use Urine drug screen was not obtained on admission Pt has not taken pain medication in 3 days and has told me that he did not need any for discharge. 3 - Mild Valvular Heart Disease - Identified on recent Echo in [place] - No definite Endocarditis, PE unremarkable. . 5 - hepatitis C No current treatment or symptoms. 6 - bilateral knee pain Resolved Was seen by orthopedics, with normal uric acid level and x-rays. 7. Insomnia: - Trazadone ineffective - Continue PRN Temazepam 30mg PO HS 8. Hyperglycemia - A1c ordered 6.2, pre-diabetic. We request that PCP follows up on this Exam Vital Signs (Last) Date Time Temp Pulse Resp B/P Pulse Ox O2 Delivery O2 Flow Rate FiO2 09/17/16 09:14 37.0 98 17 106/69 100 Room Air Exam General: NAD HEENT: NCAT Heart: 2+ systolic murmur, RRR Lungs: CTA, no crackles/wheezes Abd: NT/ND Psych: no anxiety Neuro: no focal deficits Skin: warma nd dry Test 09/07/16 16:45 09/08/16 10:54 09/14/16 09:47 09/17/16 06:10 Lactic Acid Level 1.1mmol/L (0.4-2.0) Erythrocyte Sedimentation Rate 20mm/hr (0-30) Uric Acid 3.5mg/dL (2.6-7.2) Vitamin D 25-Hydroxy 28.7ng/mL (30.0-100.0) Neutrophils (%) (Auto) 50.6% (40-74) Lymphocytes (%) (Auto) 31.4% (14-46) Monocytes (%) (Auto) 9.6% (4-12) Eosinophils (%) (Auto) 7.0% (0-5) Basophils (%) (Auto) 0.5% (0-3) Hemoglobin A1c 6.2% (4.8-5.6) Total Bilirubin 0.5mg/dL (0.0-1.2) Aspartate Amino Transf (AST/SGOT) 48U/L (0-50) Alanine Aminotransferase (ALT/SGPT) 66U/L (0-44) Alkaline Phosphatase 72U/L (25-150) C-Reactive Protein 0.4mg/dL (0.0-0.5) Total Protein 7.5g/dL (6.4-8.4) Albumin 3.9g/dL (3.4-5.0) White Blood Count 8.4th/mm3 (3.8-10.1) Red Blood Count 4.35mil/mm3 (4.40-5.80) Hemoglobin 12.9g/dL (13.8-17.2) Hematocrit 39.8% (41.0-50.0) Mean Corpuscular Volume 91.5fL (81-100) Mean Corpuscular Hemoglobin 29.7pg (27.0-35.0) Mean Corpuscular Hemoglobin Concent 32.4% (32.0-37.0) Red Cell Distribution Width 15.7% (12.3-15.4) Platelet Count 272bil/L (150-400) Sodium Level 140mEq/L (134-144) Potassium Level 4.5mEq/L (3.5-5.2) Chloride Level 103mEq/L (97-108) Carbon Dioxide Level 25mmol/L (18-29) Blood Urea Nitrogen 18mg/dL (6-24) Creatinine 0.61mg/dL (0.76-1.27) Estimat Glomerular Filtration Rate 148mL/min (>59) Glucose Level 112mg/dL (60-99) Calcium Level 9.1mg/dL (8.5-10.1) Discharge Medications As needed Ibuprofen (Ibuprofen) 600 Mg Tablet 600 MG PO Q6 PRN PRN For Pain Prescribed by: SANIA SEBASTIAN, Additional med instructions 1. Will continue with the ceftriaxone 2 g IV q.24 hours to be given in [place] through October 05. 2. On October 06, which would be the day after the completion of the ceftriaxone, the patient should be given a single 1.5 g dose of dalbavancin to complete his therapy for this neck infection. Followup Plan Follow-up plan 1. Will continue with the ceftriaxone 2 g IV q.24 hours to be given in [facility] through October 05. 2. Weekly labs will be obtained and sent to me including CBC, CMP, and CRP. 3. Dr. Sanchez needs to see the patient September 26 in my clinic. 4. On October 06, which would be the day after the completion of the ceftriaxone, the patient should be given a single 1.5 g dose of dalbavancin to complete his therapy for this neck infection. 5. The patient and his girlfriend have stated they do not wish to receive IV outpatient infusion at [facility] or any other facility in [place], even though it would be closer to their home, and for that reason we are entering into this rather complex agreement where they will come here daily for a new peripheral IV started infusion. Discharge Diet: No restrictions Discharge Activity: No restrictions Patient Instructions 1. Will continue with the ceftriaxone 2 g IV q.24 hours to be given in [facility] through October 05. 2. Weekly labs will be obtained and sent to me including CBC, CMP, and CRP. 3. Dr. Sanchez needs to see the patient September 26 in my clinic. 4. On October 06, which would be the day after the completion of the ceftriaxone, the patient should be given a single 1.5 g dose of dalbavancin to complete his therapy for this neck infection. 5. The patient and his girlfriend have stated they do not wish to receive IV outpatient infusion at [facility] or any other facility in [place], even though it would be closer to their home, and for that reason we are entering into this rather complex agreement where they will come here daily for a new peripheral IV started infusion. Follow-up with PCP in: 1 week Time spent > 30 min Sania Sebastian DO Sep 20, 2016 06:14
== END 2016-09-17 19:12 | disposition home or self-care (01) | DRG 344 ==
LOC: SED 13:17 → MPC 17:55
PROVIDERS: ADMIT Family Medicine; ATTEND Family Medicine
DX: M46.22 Osteomyelitis of vertebra, cervical region (principal); F11.20 Opioid dependence, uncomplicated; B19.20 Unspecified viral hepatitis C without hepatic coma; B95.61 Methicillin susceptible Staphylococcus aureus infection as the cause of diseases classified elsewhere; I35.1 Nonrheumatic aortic (valve) insufficiency; F17.210 Nicotine dependence, cigarettes, uncomplicated; M94.262 Chondromalacia, left knee; M94.261 Chondromalacia, right knee; G47.00 Insomnia, unspecified; R73.9 Hyperglycemia, unspecified